=== PATIENT | female | born 1950 | race Caucasian/White ===

== ENCOUNTER 2019-05-11 08:31 | Day surgery (SDC) | payer MEDICARE, OTHER, SELFPAY ==
--- NOTE | 2019-05-11 | PATH_ITS ---
[facility] Accession Number: [id number] . 01 Material submitted: . PART A: colon - BIOPSY AT 15CM OF TATTOOED PRIOR POLYPECTOMY SITE PART B: colon - POLYP AT 10CM . 02 Diagnosis: A. Colon, at 15 cm of Tattooed Prior Polypectomy Site, Biopsy: Colonic mucosa with no significant diagnostic abnormality. Negative for active, chronic and microscopic colitis. Negative for dysplasia and malignancy. . B. Colon, Polyp at 10 cm, Biopsy: Tubular adenoma. MRV 05/14/2019 1436 Local . 02 Electronically signed: . Judi Zhu MD, Pathologist NPI- [id number] . 01 Gross description: . Part A: BIOPSY AT 15CM OF TATTOOED PRIOR POLYPECTOMY SITE: Received in formalin is 1 fragment(s) of pires, soft tissue measuring 0.1 x 0.1 x 0.1 cm submitted entirely in 1 cassette(s) Part B: POLYP AT 10CM: Received in formalin is 1 fragment(s) of pires, soft tissue measuring 0.3 x 0.3 x 0.2 cm submitted entirely in 1 cassette(s) /[facility] [place] 05/11/2019 2151 Local . 02 Pathologist provided ICD-10: D12.6 . 02 CPT . 676802, [id number] Performed at: 01 [facility] [address] [id number] MD Marc Robison MD Phone: [phone] Performed at: 02 [facility] [place] [address] [place], [place] [id number] MD Judi Zhu MD Phone: [phone]
[2019-05-11 08:48] VITALS: BP 154/83; PULSE 82; RESP 16; TEMP 36.9; O2SAT 96; BMI 31.4
[2019-05-11] MEDS: SODIUM CHLORIDE 0.9% 1,000 ML 200 ML IV (09:10)
--- NOTE | 2019-05-11 10:20 | PM.HP.1 ---
History of Present Illness History of Present Illness Date Patient Seen: 05/11/19 Time Patient Seen: 10:20 Chief complaint: [id number] Narrative: This is a 69-year-old woman with history of colon polyps, found on multiple prior colonoscopies. Per the patient she had 7 polyps on her initial colonoscopy, and was on a 1 year rotation for several years prior to the most recent colonoscopy. Her last colonoscopy was 3 years ago and no polyps were found. She denies any melena or hematochezia. No unexplained abdominal pain or weight loss. She has a medical history of hypertension, arthritis, hepatitis-C which was treated and cleared. The remainder of her history is documented below. Past medical history: Hypertension High cholesterol Arthritis Postmenopausal Type 2 diabetes Depression Psoriasis Hepatitis C--treated and cleared Past surgical history: Back surgery in 2014 Hip surgery 2016 Medications: Metformin 500 mg daily Hydrochlorothiazide 12.5 mg daily Losartan 100 mg daily Metoprolol 50 mg daily Celebrex 100 mg daily Lexapro 20 mg daily Allopurinol 100 mg daily Lipitor 20 mg daily Aspirin 81 mg daily Family medical history: Two brothers with colon polyps No colon cancer Social history: Never smoker, never alcohol, denies use of other drugs Allergies: Lisinopril-cough ROS: Psoriasis, depression, knee pain. Thirteen system review is otherwise negative other than as mentioned below and in HPI. PE: GENERAL: Well groomed and cooperative. Appears stated age. Answers questions promptly and appropriately. Vital signs noted. HENT: Normocephalic, atraumatic. Hearing intact. Oral mucosa is pink and moist. EYES: Conjunctiva pink, sclera white, no periorbital swelling. CARDIOVASCULAR: Regular rate. No pedal edema. RESPIRATORY: Non-tachypneic, breathing comfortably on room air. GASTROINTESTINAL: Abdomen soft and non-distended GENITALURINARY: No flank tenderness. MUSCULOSKELETAL: Equal tone and mass bilaterally. SKIN: Warm, dry, soft, appropriate color for ethnicity. No other lesions, rashes, or wounds. NEURO: Alert and Oriented X 3. No gross sensory deficits, or cognitive issues. PSYCH: Appropriate affect and mood. Patient History Family & Social History Social History: household members friend(s) Meds Home Medications and Allergies Allergies Allergy/AdvReac Type Severity Reaction Status Date / Time lisinopril AdvReac Mild Cough Verified 05/11/19 08:55 Exam Vital Signs (past 8 hours): - 05/11/19 08:48 Temperature 98.4 F Pulse Rate 82 Respiratory Rate 16 Blood Pressure 154/83 H Pulse Oximetry 96 Oxygen Delivery Method Room Air Assessment & Plan Assessment and plan (1) Personal history of colonic polyps: Current visit: Yes Status: Acute Assessment & Plan narrative: This is a 69-year-old woman with history of colon polyps. Risks and benefits of colonoscopy including polypectomy were discussed including risk of bleeding, perforation, need for additional procedures. The patient desires to proceed with her colonoscopy procedure. Time Spent With Patient Time with patient: 15-24 minutes Quality VTE Deep Vein Thrombosis/Pulmonary Embolism Present on Admission: No
[2019-05-11] MEDS: fentaNYL 250 MCG/5 ML INJ IV (10:28)
[2019-05-11] MEDS: MIDAZOLAM 5 MG/5 ML VIAL IV (10:29)
--- NOTE | 2019-05-11 10:40 | SUR.OPER ---
GLASSES IN LABELED BAG TO PACU WITH PATIENT.
--- NOTE | 2019-05-11 10:51 | PM.OP.ENDO ---
Operative Date/Time/Diagnoses Date of procedure: 05/11/19 Time of procedure: 10:51 Pre-op diagnosis: History of multiple polyps Post-op diagnosis: same Procedure & Clinicians Study performed: Colonoscopy, polypectomy with cold forceps, biopsy of prior polypectomy site with cold forceps Same procedure as scheduled: Yes Indications: Patient with history of multiple polyps Surgeon: Lexie Burgos Procedure Notes SCOAP/Timeout: Performed Procedure in detail: The patient was brought to the room and placed in left lateral decubitus position with all bony prominences padded. A time-out was performed and then the patient was given procedural sedation starting with 4 mg of Versed and 100 mcg of fentanyl. A total of 5 mg of Versed and 150 micro g of fentanyl were given for the case. Vitals were monitored throughout the procedure and remained stable. Once adequately sedated the procedure was begun. A rectal exam was performed revealing no abnormalities. The colonoscope was then introduced to the rectum and advanced to the cecum in the usual fashion. The cecum was identified by the appendiceal orifice, the mucosal tri-fold, and the ileocecal valve. The scope was then retracted while rotating side to side and examining each mucosal fold. Several tattooed sites were seen throughout the colon, which are expected to be prior polypectomy sites. At 15 cm in the rectum 1 of the tattoo sites had a hypercellular area at the center of it, suspicious for adenomatous growth. This was biopsied. Another polyp was seen at 10 cm in the rectum. It was about 3 mm in size, and was removed with cold forceps. She had moderate diverticulosis in the descending and sigmoid colon with some thickening consistent with prior episodes of diverticulitis. At the conclusion of the procedure retroflexion was performed and small grade 1-2 internal hemorrhoids without stigmata of bleeding were seen. The scope was then withdrawn from the rectum the procedure was concluded. The patient tolerated the procedure well and was transferred to the PACU in stable condition. Scope withdrawal time: 14 Sedation minutes: 21 Findings: diverticulosis Specimen(s): other (Biopsy of tattooed prior polypectomy site at 15 cm from the anal verge, 3 mm polyp removed from rectum at 10 cm) Complications: none Impression: One polyp, 1 area of prior polypectomy site which was concerning for adenomatous growth Post-procedure Recommendations: Colonscopy in 3 years (Depending on pathology results) Follow up: as needed Disposition: PACU
[2019-05-11 10:56] VITALS: BP 117/58; PULSE 72; RESP 15; TEMP 37.3; O2SAT 94
[2019-05-11 11:02] VITALS: BP 120/60; PULSE 78; RESP 13; O2SAT 96
[2019-05-11 11:06] VITALS: BP 108/75; PULSE 80; RESP 12; TEMP 36.7; O2SAT 95
[2019-05-11 11:14] VITALS: BP 126/73; PULSE 79; RESP 15; TEMP 37.1; O2SAT 93
--- NOTE | 2019-05-11 11:47 | SUR.PHASEII ---
Pt not wanting friend to come in, d/c instructions discussed, pt with soft belly and denied nausea. Pt dressed when ready and left when ready and in stable condition.
== END 2019-05-11 11:40 | disposition home or self-care (01) ==
PROVIDERS: Visit Provider Surgery
PROC: 0DJD8ZZ Inspection of Lower Intestinal Tract, Via Natural or Artificial Opening Endoscopic (ICD-10-PCS; CPT 45378; principal; 2019-05-11 10:00)
DX: Z12.11 Encounter for screening for malignant neoplasm of colon (principal); Z86.010 Personal history of colon polyps; I10 Essential (primary) hypertension; E78.00 Pure hypercholesterolemia, unspecified; E11.9 Type 2 diabetes mellitus without complications; F32.9 Major depressive disorder, single episode, unspecified; Z79.84 Long term (current) use of oral hypoglycemic drugs; D12.6 Benign neoplasm of colon, unspecified
CPT/HCPCS: 45380; 99152; J2250; J3010

== ENCOUNTER → 2020-03-18 09:37 | Outpatient (CLI) | payer MEDICARE, OTHER, SELFPAY ==
--- NOTE | 2020-03-18 | DI.MRI.S_ITS ---
PROCEDURE: MR LUMBAR SPINE WO CON INDICATIONS: Low back pain TECHNIQUE: Noncontrast sagittal T1 spin echo and T2 fast echo, sagittal STIR, axial T1 and T2 fast spin echo through the lumbar spine. In cases with scoliosis, additional coronal T2 fast spin echo may be performed. COMPARISON: [facility], MR, L-SPINE WITHOUT CONTRAST, 08/01/2013, 9:42. [facility], MR, LUMBAR SPINE W&W/O CONTRAST, 03/16/2012, 10:09. [facility], MR, L-SPINE WITHOUT CONTRAST, 01/08/2010, 16:41. [facility], MR, L-SPINE WITHOUT CONTRAST, 06/05/2008, 14:42. [facility], MR, L-SPINE WITHOUT CONTRAST, 04/22/2014, 14:38. [facility], CR, XR LUMBAR SPINE 2 OR 3 VIEWS, 03/12/2020, 8:44. FINDINGS: Image quality: There is artifact associated with the metallic hardware. Alignment and Curvature: Mild dextroconvex scoliotic curvature is seen. No focal AP alignment abnormality is seen. Bone Marrow: Marrow is of normal overall signal. No acute vertebral body compression fractures. Spinal Cord: Conus medullaris terminates at the L1 level. Visualized cord demonstrates normal signal and size. Paraspinous Soft Tissues: No paravertebral masses. Incidental note is made of a retroaortic left renal vein. Postoperative changes are seen, with bilateral pedicle screws at L2, L4, and L5, with a right-sided screw at L3. Vertical fixation rods are seen. Disc spacers are seen at L2-3, L3-4, and L4-5. There is associated susceptibility artifact. There has been removal of portions of the posterior elements. T12-L1: Mnno-rb-[id number] loss of disc height and disc signal can be seen. Mild generalized disc bulge is seen. No significant neural foraminal or central canal narrowing can be seen. L1-L2: Zzhq-gm-taxqhsbq loss of disc height and disc signal can be seen. Mild generalized disc bulge is seen. There is mild left-sided and no significant right-sided neural foraminal narrowing seen. Mild central canal narrowing is seen. These imaging findings have progressed compared to the prior study. L2-L3: Postoperative changes are seen at this level. No significant neural foraminal or central canal narrowing can be seen. This level is improved compared to the preoperative MRI. L3-L4: There are postoperative changes seen at this level. At least moderate disc bulge is seen. Moderate facet joint hypertrophy is seen. No significant neural foraminal narrowing can be seen. Moderate central canal narrowing is seen. This level is improved compared to the preoperative MRI study. L4-L5: There are postoperative changes seen at this level. Moderate generalized disc bulge is seen. Moderate bilateral neural foraminal narrowing can be seen, left worse than right. Moderate central canal narrowing is seen. This level is overall improved compared to the 2014 MRI examination. L5-S1: Moderate loss of disc height is seen. Loss of disc signal is seen. Moderate prominent disc bulge is seen, which is eccentric to the right. Moderate prominent facet hypertrophy can be seen at this level. Moderate to severe bilateral neural foraminal narrowing is seen, right worse than left. Moderate to severe central canal narrowing is seen. The degenerative changes at this level have progressed compared to 2014. IMPRESSION: L2 through L5 postoperative changes, with improvement in the degrees of narrowing compared to the 2014 preoperative MRI examination. Progression of degenerative change at L1-L2 and L5-S1 compared to 2014. Dictated by: Jd Acosta M.D. on 03/18/2020 at 12:26 Approved by: Jd Acosta M.D. on 03/18/2020 at 12:32
== END ==
PROVIDERS: PCP Internal Medicine; Referring Provider Internal Medicine; Visit Provider Orthopaedic Surgery
DX: M54.5 Low back pain (principal); M47.816 Spondylosis without myelopathy or radiculopathy, lumbar region; M47.817 Spondylosis without myelopathy or radiculopathy, lumbosacral region
CPT/HCPCS: 72148

== ENCOUNTER → 2020-06-02 13:50 | Outpatient (CLI) | payer MEDICARE, OTHER, SELFPAY ==
[2020-06-02 15:13] LABS: COVID19 -Nasal RAPID Negative (Negative)
== END ==
PROVIDERS: PCP Internal Medicine; Visit Provider Physical Medicine & Rehabilitation
DX: Z20.822 Contact with and (suspected) exposure to COVID-19 (principal)
CPT/HCPCS: 87635; C9803

== ENCOUNTER 2020-06-03 07:59 | Outpatient (CLI) | payer MEDICARE, OTHER, SELFPAY ==
--- NOTE | 2020-06-03 08:05 | DI.RAD.S_ITS ---
PROCEDURE: PAIN L INTERLAMINAR/CAUDAL INJ INDICATIONS: SPONDYLOSIS COMPARISON: [facility], RF, LUMBAR TRANSFORAMINAL SARA, 05/07/2020, 11:11. [facility], RF, LUMBAR TRANSFORAMINAL SARA, 04/01/2020, 14:22. [facility], MR, MR LUMBAR SPINE WO CON, 03/18/2020, 10:04. [facility], CR, XR LUMBAR SPINE 2 OR 3 VIEWS, 03/12/2020, 8:44. FINDINGS: Fluoroscopic spot filming was performed to verify placement of spinal needles at the L5-S1 level(s), as labeled on the films. Appropriate location(s) of the needle tip(s) was confirmed by injection of iodinated contrast. IMPRESSION: Fluoroscopy for pain management. Dictated by: Tevin Altman M.D. on 06/03/2020 at 9:46 Approved by: Tevin Altman M.D. on 06/03/2020 at 9:47
[2020-06-03 08:32] VITALS: BP 121/70; PULSE 68; RESP 16; TEMP 37.1; O2SAT 95
[2020-06-03 09:01] VITALS: BP 189/81; PULSE 70; RESP 10; O2SAT 98
[2020-06-03 09:05] VITALS: BP 180/70; PULSE 66; RESP 17; O2SAT 92
[2020-06-03] MEDS: BETAMETHASONE 30 MG/5 ML MDV 6 MG INJ (09:06)
[2020-06-03] MEDS: BUPIVACAINE 0.25% (PF) VIAL 2 ML INJ (09:06)
[2020-06-03] MEDS: IOPAMIDOL 15 ML VIAL 3 ML INJ (09:06)
[2020-06-03] MEDS: fentaNYL 100 MCG/2 ML INJ 50 MCG IV (09:07)
[2020-06-03] MEDS: DEXAMETHASONE 10 MG/ML VIAL 20 MG INJ (09:07)
[2020-06-03] MEDS: MIDAZOLAM 5 MG/5 ML VIAL IV (09:08)
--- NOTE | 2020-06-03 09:12 | P.PCN_ITS ---
Date/Time/Diagnoses Date of procedure: 06/03/20 Time of procedure: 09:12 Pre-procedure diagnosis: 1. HNP WITH RADICULAR FEATURES, 2. MULTILEVEL CENTRAL STENOSIS, Post-procedure diagnosis: same Procedure Notes Procedure: 1. FLUOROSCOPICALLY GUIDED CONTRAST CONTROLLED INTERLAMINAR EPIDURAL STEROID INJECTION - Para left L5/S1 Indications: Radha is referred by Dr. Lewis for treatment of Bilateral Foraminal Stenosis L>R LE symptoms. Physician: Hai Cordero Total Fluoroscopy time (seconds): 4 Total sedation minutes: 7 Complications: none Procedure in detail & Post-procedure care: FINDINGS Multilevel Central Spinal Stenosis with Nerve Root Compression DESCRIPTION OF PROCEDURE Fluoroscopically guided, contrast-controlled L5/S1 translaminar epidural steroid injection. Following review of allergy and review of potential side effects and complications, including, but not necessarily limited to, infection, allergic reaction, local tissue breakdown, temporary as well as permanent nerve injury, paralysis, stroke and possible , the patient indicated that the patient understood and agreed to proceed. An informed consent document was signed by the patient, witnessed by a nurse, and placed in the patient's chart. Additionally, other treatment options including modalities, medications, and physical therapy were reviewed with the patient. After review of previous anaesthesic history and IV conscious sedation the patient was deemed safe to proceed with today?s procedure with IV conscious sedation as ASA class II designation. Safety time-out was performed to confirm patient ID, procedure to be performed and site of procedure. IV sedation was accomplished with a combination of 2mg of Versed and 50mcg of Fentanyl administered by the RN after DO order, titrated to patient comfort during the course of the procedure while the patient remained responsive to all verbal commands. In the prone position, following sterile prep and drape of the lumbar region, t he L5/S1 translaminar space was identified fluoroscopically. The skin was anesthetized via a 25-gauge, 1.5-inch needle with 1% lidocaine solution. At this point, a 22-gauge short bevel spinal needle was atraumatically introduced and advanced under fluoroscopic guidance into the region of the L5/S1 translaminar space. Depth was confirmed on lateral view. Radiological data, including multiple fluoroscopic views of the lumbar spine, reveal a spinal needle at the L5/S1 translaminar space. Lateral views then show placement of the needle in the epidural space. Subsequent views show contrast material flowing superiorly and inferiorly in the epidural space. No vascular or intrathecal uptake is observed. At this point, using loss of resistance technique with saline and air, the epidural space was entered. This was confirmed following negative aspiration with injection of approximately 1.5cc of Isovue 200, showing excellent epidural flow without vascular or intrathecal uptake. At this point, 1 cc of 1% lidocaine solution combined with 3cc or 20mg of dexamethasone and 6mg of betamethasone was injected without incident. The patent tolerated the procedure without signs of symptoms of complications prior to transfer to the recovery area for further monitoring. The patient was then transferred to the recovery area where they were observed for an appropriate period of time after the injection. The patient reported a VAS score of 6 prior to the procedure and a post-procedure VAS of 0. POST OP INSTRUCTIONS The patient was provided a Pain Log to continue to record their response to the target-specific procedure prior to follow-up visit with their referring physician. Additionally, specific post-injection care instructions and a contact number to our office were provided if concerns arise regarding possible complications associated with the procedure are suspected.
[2020-06-03 09:22] VITALS: BP 126/73; PULSE 67; RESP 17; O2SAT 95
[2020-06-03 09:27] VITALS: BP 119/60; PULSE 64; RESP 15; O2SAT 96
[2020-06-03 09:32] VITALS: BP 120/60; PULSE 65; RESP 16; O2SAT 95
== END 2020-06-03 09:45 | disposition home or self-care (01) ==
LOC: RAD 08:04
PROVIDERS: PCP Internal Medicine; Referring Provider Physical Medicine & Rehabilitation; Visit Provider Physical Medicine & Rehabilitation
DX: M51.17 Intervertebral disc disorders with radiculopathy, lumbosacral region (principal); M48.07 Spinal stenosis, lumbosacral region
CPT/HCPCS: 62323; J0702; J1100; J2250; J3010

== ENCOUNTER → 2020-07-29 12:56 | Outpatient (CLI) | payer MEDICARE, OTHER, SELFPAY ==
[2020-07-29 14:14] LABS: COVID19 -Nasal RAPID Negative (Negative)
== END ==
PROVIDERS: PCP Internal Medicine; Visit Provider Physical Medicine & Rehabilitation
DX: Z20.822 Contact with and (suspected) exposure to COVID-19 (principal)
CPT/HCPCS: 87635; C9803

== ENCOUNTER 2020-07-31 13:39 | Outpatient (CLI) | payer MEDICARE, OTHER, SELFPAY ==
[2020-07-31] VITALS (9 sets, daily range): BP systolic 122–256; BP diastolic 58–72; PULSE 63–70; RESP 11–18; TEMP 37.1; O2SAT 92–97
--- NOTE | 2020-07-31 13:41 | DI.RAD.S_ITS ---
PROCEDURE: PAIN L/S FACET INJ/BLK 1ST [facility] COMPARISON: None. INDICATIONS: SPONDYLOSIS FINDINGS: Fluoroscopic spot filming was performed to verify placement of spinal needles at the L5-S1 level(s), as labeled on the films. Appropriate location(s) of the needle tip(s) was confirmed by injection of iodinated contrast. Dictated by: Gabriel Kumar M.D. on 07/31/2020 at 15:39 Approved by: Gabriel Kumar M.D. on 07/31/2020 at 15:39
[2020-07-31] MEDS: fentaNYL 100 MCG/2 ML INJ 50 MCG IV (14:19)
[2020-07-31] MEDS: MIDAZOLAM 5 MG/5 ML VIAL IV (14:19)
[2020-07-31] MEDS: IOPAMIDOL 15 ML VIAL 3 ML INJ (14:24)
[2020-07-31] MEDS: BUPIVACAINE 0.5% (PF) VIAL 2 ML INJ (14:24)
[2020-07-31] MEDS: BETAMETHASONE 30 MG/5 ML MDV 12 MG INJ (14:24)
--- NOTE | 2020-07-31 14:32 | PM.PROC.IR.1 ---
Date/Time/Diagnoses Date of procedure: 07/31/20 Time of procedure: 14:32 Pre-procedure diagnosis: 1. FACET ARTHROPATHY, 2. AXIAL LBP, 3. MULTILEVEL DDD, Post-procedure diagnosis: same Procedure Notes Procedure: 1. FLUORSCOPICALLY GUIDED CONTRAST CONTROLLED FACET JOINT INJECTIONS BILATERAL L5/S1 Indications: Radha is referred by Dr. Lewis for treatment of Axial LBP Physician: Hai Cordero Total Fluoroscopy time (seconds): 8 Total sedation minutes: 11 Complications: none Procedure in detail & Post-procedure care: DESCRIPTION OF PROCEDURE Fluoroscopically guided, contrast-controlled bilateral L5/S1 facet joint injections. Following review of allergy and review of potential side effects and complications, including, but not necessarily limited to, infection, allergic reaction, local tissue breakdown, stroke, temporary or permanent nerve injury, paralysis, and possible , the patient indicated that the patient understood and agreed to proceed. An informed consent document was signed by the patient, witnessed by a nurse, and placed in the patient's chart. Additionally, other treatment options including medications, modalities, and physical therapy were reviewed with the patient. After review of previous anaesthesic history and IV conscious sedation the patient was deemed safe to proceed with today?s procedure with IV conscious sedation as ASA class II designation. Safety time-out was performed to confirm patient ID, procedure to be performed and site of procedure. IV sedation was accomplished with a combination of 2mg of Versed and 50mcg of Fentanyl administered by the RN after DO order, titrated to patient comfort during the course of the procedure while the patient remained responsive to all verbal commands In the prone position, following sterile prep and drape of the lumbar region, the posterior aspect of the L5/S1 facet joints were identified fluoroscopically. The skin was anesthetized via a 25-gauge 1.5-inch needle with 1% lidocaine solution into the corresponding facet joints. At this point, a 22-gauge 3inch spinal needle was atraumatically introduced and advanced under fluoroscopic guidance into the corresponding facet joints. Following negative aspiration, injections of approximately 0.2cc of Isovue 200 confirmed interarticular placement without vascular uptake. The identical procedure was then performed at the L5/S1 facet joints on the left. Radiological data, including multiple fluoroscopic views of the lumbosacral spine, reveal a spinal needle at the L5/S1 facet joints bilaterally. Subsequent views show flow of contrast material both superiorly and inferiorly within the joint space without vascular or intrathecal uptake. At this point, a total of 0.5cc including a mixture of 0.25cc Marcaine and 0.25cc betamethasone was injected without complication into each of the corresponding facet joints. The patient tolerated the procedure well without signs or symptoms of complications prior to transfer to the recovery area continued monitoring without incident. The patient was then transferred to the recovery area where they were observed for an appropriate period of time after the injection. The patient reported a VAS score of 7 prior to the procedure and a post-procedure VAS of 0. POST OP INSTRUCTIONS The patient was provided a Pain Log to continue to record their response to the target-specific procedure prior to follow-up visit with their referring physician. Additionally, specific post-injection care instructions and a contact number to our office were provided if concerns arise regarding possible complications associated with the procedure are suspected.
== END 2020-07-31 14:55 | disposition home or self-care (01) ==
LOC: RAD 13:40
PROVIDERS: PCP Internal Medicine; Referring Provider Internal Medicine; Visit Provider Physical Medicine & Rehabilitation
DX: M47.817 Spondylosis without myelopathy or radiculopathy, lumbosacral region (principal); M51.37 Other intervertebral disc degeneration, lumbosacral region; M54.5 Low back pain
CPT/HCPCS: 64493; 99152; J0702; J2250; J3010

== ENCOUNTER → 2020-10-14 07:34 | Outpatient (CLI) | payer MEDICARE, OTHER, SELFPAY ==
[2020-10-14 12:55] LABS: COVID19 -Nasal RAPID Negative (Negative)
== END ==
PROVIDERS: PCP Internal Medicine; Visit Provider Physical Medicine & Rehabilitation
DX: Z20.822 Contact with and (suspected) exposure to COVID-19 (principal)
CPT/HCPCS: 87635; C9803

== ENCOUNTER 2020-10-16 09:56 | Outpatient (CLI) | payer MEDICARE, OTHER, SELFPAY ==
[2020-10-16] VITALS (10 sets, daily range): BP systolic 131–168; BP diastolic 57–76; PULSE 55–65; RESP 10–20; TEMP 36.1; O2SAT 95–99
--- NOTE | 2020-10-16 09:57 | DI.RAD.S_ITS ---
PROCEDURE: PAIN L/S FACET INJ/BLK 1ST [facility] COMPARISON: [facility], XA, PAIN L/S FACET INJ/BLK 1ST [facility], 07/31/2020, 14:25. [facility], XA, PAIN L INTERLAMINAR/CAUDAL INJ, 06/03/2020, 9:02. [facility], , LUMBAR TRANSFORAMINAL SARA, 05/07/2020, 11:11. [facility], , LUMBAR TRANSFORAMINAL SARA, 04/01/2020, 14:22. INDICATIONS: SPONDYLOSIS FINDINGS: 6 intraoperative fluoroscopy images demonstrate needle placement at L5 and S1 bilaterally. Note is made of postsurgical changes related to discectomy and spinal fusion. IMPRESSION: Fluoroscopy guidance for pain management. Dictated by: Tevin Altman M.D. on 10/16/2020 at 11:30 Approved by: Tevin Altman M.D. on 10/16/2020 at 11:32
[2020-10-16] MEDS: fentaNYL 100 MCG/2 ML INJ 50 MCG IV (10:53)
[2020-10-16] MEDS: MIDAZOLAM 5 MG/5 ML VIAL IV (10:57)
[2020-10-16] MEDS: BUPIVACAINE 0.5% (PF) VIAL 5 ML INJ (11:02)
[2020-10-16] MEDS: IOPAMIDOL 15 ML VIAL 3 ML INJ (11:02)
[2020-10-16] MEDS: LIDOCAINE 1% 20 ML 10 ML INJ (11:02)
--- NOTE | 2020-10-16 11:14 | P.PCN_ITS ---
Date/Time/Diagnoses Date of procedure: 10/16/20 Time of procedure: 11:15 Pre-procedure diagnosis: 1. FACET ARTHROPATHY Post-procedure diagnosis: same Procedure Notes Procedure: 1. BILATERAL- L5 and S1 MB BLOCKS Indications: Radha is referred by Dr. Lewis for treatment of Bilateral Axial LBP. Physician: Hai Cordero Total Fluoroscopy time (seconds): 10 Total sedation minutes: 16 Complications: none Procedure in detail & Post-procedure care: DESCRIPTION OF PROCEDURE Fluoroscopically guided, contrast-controlled bilateral L5 and S1 medial branch blocks with 0.5cc of 0.5% Marcaine. Following review of allergy and review of potential side effects and complications, including, but not necessarily limited to, infection, allergic reaction, local tissue breakdown, nerve injury, paralysis, stroke and possible , the patient indicated that the patient understood and agreed to proceed. An informed consent document was signed by the patient, witnessed by a nurse, and placed in the patient's chart. After review of previous anaesthesic history and IV conscious sedation the patient was deemed safe to proceed with today?s procedure with IV conscious sedation as ASA class II designation. Safety time-out was performed to confirm patient ID, procedure to be performed and site of procedure. IV sedation was accomplished with a combination of 3mg of Versed and 50mcg of Fentanyl was administered by the RN after DO order, titrated to patient comfort during the course of the procedure while the patient remained responsive to all verbal commands In the prone position, following sterile prep and drape of the lumbar region, the right L5 and S1 anatomical location of the medial branch of the dorsal ramus was identified fluoroscopically. Subsequently an anesthetic skin wheal using 1% lidocaine solution was initiated at each of the anatomical spots. Subsequently then a 22-gauge 3.5-inch spinal needle was atraumatically introduced and advanced under fluoroscopic guidance at each of the corresponding sites at the right L5 and S1 MB. After negative aspiration, 0.2 cc of Isovue 200 was injected, confirming placement without vascular or intrathecal uptake. Subsequently then 0.5 cc of 0.5% Marcaine solution was injected at each of the corresponding sites at the right L5 and S1 medial branch locations. The identical procedure was replicated on the left. The patient tolerated the procedure well without signs or symptoms of complications. The patient tolerated the procedure well without signs or symptoms of complications prior to transfer to the recovery area continued monitoring wit hout incident. Post-procedure, the patient was monitored initiating provocative activities to measure the amount of relief from block of the facetogenic pain. The patient reported a VAS of 7 prior to the procedure and a post-procedure VAS of 1. It has been a pleasure to assist in the diagnostic and therapeutic care of your patient. POST OP INSTRUCTIONS The patient was provided with a Pain Log to complete over the next several hours and subsequent days prior to the patient's follow up with the ordering physician. If the patient has websphere commerce consultant relief to the solution applied, then they may be a candidate for medial branch rhizotomy. The patient is aware, was provided, once again, with a Pain Log and will follow up with the referring physician for review and clinical correlation.
== END 2020-10-16 11:36 | disposition home or self-care (01) ==
LOC: RAD 09:57
PROVIDERS: PCP Internal Medicine; Referring Provider Physical Medicine & Rehabilitation; Visit Provider Physical Medicine & Rehabilitation
DX: M47.816 Spondylosis without myelopathy or radiculopathy, lumbar region (principal); M54.5 Low back pain
CPT/HCPCS: 64493; 99152; J2250; J3010

== ENCOUNTER → 2020-12-15 08:08 | Outpatient (CLI) | payer MEDICARE, OTHER, SELFPAY ==
[2020-12-15 12:13] LABS: COVID19 -Nasal RAPID Negative (Negative)
== END ==
PROVIDERS: PCP Internal Medicine; Visit Provider Physical Medicine & Rehabilitation
DX: Z20.822 Contact with and (suspected) exposure to COVID-19 (principal)
CPT/HCPCS: 87635; C9803

== ENCOUNTER 2020-12-16 10:31 | Outpatient (CLI) | payer MEDICARE, OTHER, SELFPAY ==
[2020-12-16] VITALS (12 sets, daily range): BP systolic 131–167; BP diastolic 55–73; PULSE 59–70; RESP 12–19; TEMP 37.1; O2SAT 94–98
--- NOTE | 2020-12-16 10:32 | DI.RAD.S_ITS ---
PROCEDURE: PAIN L/S MED/LAT N RFA BILAT INDICATIONS: SPONDYLOSIS COMPARISON: [facility], XA, PAIN L/S FACET INJ/BLK 1ST CHRISTI, 10/16/2020, 11:02. [facility], XA, PAIN L/S FACET INJ/BLK 1ST [facility]STI, 07/31/2020, 14:25. FINDINGS: Fluoroscopic spot filming was performed to verify placement of spinal needles at the on both sides at the L5 and S1 level(s), as labeled on the films. IMPRESSION: Intraprocedural examination within normal limits. Dictated by: Jd Acosta M.D. on 12/16/2020 at 11:50 Approved by: Jd Acosta M.D. on 12/16/2020 at 11:51
[2020-12-16] MEDS: fentaNYL 100 MCG/2 ML INJ 50 MCG IV (12:00)
[2020-12-16] MEDS: LIDOCAINE 1% 20 ML INJ (12:06)
[2020-12-16] MEDS: BUPIVACAINE 0.5% (PF) VIAL 5 ML INJ (12:07)
[2020-12-16] MEDS: MIDAZOLAM 5 MG/5 ML VIAL IV (12:19)
--- NOTE | 2020-12-16 12:34 | P.PCN_ITS ---
Date/Time/Diagnoses Date of procedure: 12/16/20 Time of procedure: 12:35 Pre-procedure diagnosis: 1. RECALCITRANT FACET ARTHROPATHY Post-procedure diagnosis: same Procedure Notes Procedure: 1. BILATERAL L5 MEDIAL BRANCH RADIOFREQUENCY NEUROTOMY AND BILATERAL S1 DORSAL RAMUS BRANCH RADIOFREQUENCY NEUROTOMY. Indications: Radha is referred by Dr. Lewis for treatment of facet arthropathy. Physician: Hai Cordero Total Fluoroscopy time (seconds): 15 Total sedation minutes: 28 Complications: none Procedure in detail & Post-procedure care: DESCRIPTION OF PROCEDURE Bilateral L5 medial branch radiofrequency neurotomy and bilateral S1 dorsal ramus branch radiofrequency neurotomy under fluoroscopy with conscious sedation. The patient is well known to this clinic having undergone previous facet injections with good but temporary relief. The patient has experienced appropriate, concordant relief with previous facet and median branch blocks but the patient's pain has been recalcitrant to further conservative measures. Therefore, based upon the patient's relief and persistent symptoms, the patient is considered an appropriate candidate for facet rhizotomy. All of the patient's questions regarding the risks versus benefits of the procedure, including, but not limited to, bleeding, infection, temporary as well as lasting nerve injury, paralysis, stroke, and , as well treatment alternatives were answered to satisfaction. After obtaining informed consent, denial of pertinent drug allergies, as well as being made aware of the potential risks of bleeding, infection, spinal cord trauma, paralysis, temporary and permanent nerve damage, seizure, stroke, and possible , the patient was brought to the fluoroscopy suite and positioned prone on the fluoroscopy table. The lumbar region was prepped with Betadine and covered with a fenestrated drape in the usual sterile fashion. Appropriate monitors applied including pulse oximeter, pulse, and blood pressure for regular monitoring throughout the procedure. After review of previous anaesthesic history and IV conscious sedation the patient was deemed safe to proceed with today?s procedure with IV conscious sedation as ASA class II designation. Safety time-out was performed to confirm patient ID, procedure to be performed and site of procedure. IV sedation was accomplished with a combination of 5mg of Versed and 50mcg of Fentanyl was administered by the RN after DO order, titrated to patient comfort during the course of the procedure while the patient remained responsive to all verbal commands. After local infiltration using 1% lidocaine, under fluoroscopic guidance, a 10- cm RF insulated needle with a 10-mm active tip was positioned parallel to the junction of the bilateral sacral ala and the superior articulating process where the S1 dorsal ramus resides. Needle placement was confirmed with motor stimulation of .5v on the right; motor stimulation of .6v on the left, which produced local stimulation without radicular component. The stimulation was then increased to 2v with, once again, only local multifidus stimulation without radicular component. This was then followed by two discreet lesions performed at 80 degrees Celsius for 90 seconds each. The needle was then removed and the identical procedure was performed along the length of the bilateral L5 medial branch with motor stimulation at .7v on the right; motor stimulation at .6v on the left. The patient tolerated the procedure well without signs or symptoms of complications prior to transfer to the recovery area continued monitoring without incident. The patient was then transferred to the recovery area where they were observed for an appropriate period of time after the injection. The patient reported a VAS score of 9 prior to the procedure and a post- procedure VAS of 0. POST OP INSTRUCTIONS The patient was provided a Pain Log to continue to record the patient's response to the target-specific procedure prior to the patient's follow-up visit with the referring physician. Additionally, specific post-injection care instructions and a contact number to our office were provided if concerns arise regarding possible complications associated with the procedure are suspected.
== END 2020-12-16 12:50 | disposition home or self-care (01) ==
LOC: RAD 10:31
PROVIDERS: PCP Internal Medicine; Referring Provider Physical Medicine & Rehabilitation; Visit Provider Physical Medicine & Rehabilitation
DX: M47.817 Spondylosis without myelopathy or radiculopathy, lumbosacral region (principal)
CPT/HCPCS: 64635; 99152; 99153; J2250; J3010

== ENCOUNTER → 2021-05-12 11:13 | Outpatient (CLI) | payer MEDICARE, OTHER, SELFPAY ==
[2021-05-12 12:37] LABS: COVID19 -Nasal RAPID Negative (Negative)
== END ==
PROVIDERS: PCP Internal Medicine; Visit Provider Physical Medicine & Rehabilitation
DX: Z20.822 Contact with and (suspected) exposure to COVID-19 (principal)
CPT/HCPCS: 87635; C9803

== ENCOUNTER 2021-05-14 13:52 | Outpatient (CLI) | payer MEDICARE, OTHER, SELFPAY ==
[2021-05-14] VITALS (8 sets, daily range): BP systolic 125–190; BP diastolic 68–88; PULSE 63–72; RESP 12–18; O2SAT 95–99
--- NOTE | 2021-05-14 13:53 | DI.RAD.S_ITS ---
PROCEDURE: PAIN SI JOINT INJECTION INDICATIONS: SACROILIAC DISORDER COMPARISON: [facility], XA, PAIN L/S MED/LAT N RFA BILAT, 12/16/2020, 12:06. FINDINGS: Fluoroscopic spot filming was performed to verify placement of spinal involving the right sacroiliac joint, as labeled on the films. Appropriate location(s) of the needle tip(s) was confirmed by injection of iodinated contrast. IMPRESSION: Intraprocedural examination within normal limits. Dictated by: Jd Acosta M.D. on 05/14/2021 at 14:49 Approved by: Jd Acosta M.D. on 05/14/2021 at 14:49
[2021-05-14] MEDS: MIDAZOLAM 5 MG/5 ML VIAL IV (14:30)
[2021-05-14] MEDS: fentaNYL 100 MCG/2 ML INJ 50 MCG IV (14:30)
[2021-05-14] MEDS: BUPIVACAINE 0.5% (PF) VIAL 2 ML INJ (14:33)
[2021-05-14] MEDS: BETAMETHASONE 30 MG/5 ML MDV 12 MG INJ (14:33)
[2021-05-14] MEDS: IOPAMIDOL 15 ML VIAL 3 ML INJ (14:33)
--- NOTE | 2021-05-14 14:43 | PM.PROC.IR.1 ---
Date/Time/Diagnoses Date of procedure: 05/14/21 Time of procedure: 14:43 Pre-procedure diagnosis: Sacroiliac joint pain/DJD Post-procedure diagnosis: same Procedure Notes Procedure: Fluoroscopically guided contrast controlled right sacroiliac joint injection Indications: Joanne is referred by Dr. Lewis for treatment of right sacroiliac joint DJD Physician: Hai Cordero Total Fluoroscopy time (seconds): 11 Total sedation minutes: 9 Complications: none Procedure in detail & Post-procedure care: DESCRIPTION OF PROCEDURE Fluoroscopically guided, contrast controlled right sacroiliac joint injection Following review of allergies and review of potential side effects and complications, including, but not necessarily limited to, infection, allergic reaction, local tissue breakdown, temporary as well as permanent nerve injury, paralysis, stroke and possible , the patient indicated that they understood and agreed to proceed. An informed consent was signed by the patient, witnessed by a nurse, and placed in the patient's chart. Additionally, other treatment options including modalities, medications, and physical therapy were reviewed with the patient. After review of previous anaesthesic history and IV conscious sedation the patient was deemed safe to proceed with today?s procedure with IV conscious sedation as ASA class II designation. Safety time-out was performed to confirm patient ID, procedure to be performed and site of procedure. IV sedation was accomplished with a combination of 2mg of Versed and 50mcg of Fentanyl was administered by the RN after DO order, titrated to patient comfort during the course of the procedure while the patient remained responsive to all verbal commands In the prone position following sterile prep and drape of the pelvic region, the hyper lucency on in the inferior aspect of the sacroiliac joint was identified fluoroscopically the skin was anesthetized be a 25 gauge 1 eventual with approximately 2 cc of 1% lidocaine solution. At this point, a 22 gauge 3 in spinal needle was atraumatically introduced and advanced under fluoroscopic guidance into the inferior aspect of the right sacroiliac joint. Following negative aspiration, approximately 0.3cc of Isovue-300 was injected confirming intra-articular placement without vascular uptake. Radiographic data, including multiple fluoroscopic views of the pelvis, reveals a spinal needle in the sacroiliac joint hyper lucent zone. Subsequent view show flow contrast tear superiorly and inferiorly within the joint capsule without vascular intrathecal uptake. At this point a total of 1 of 0.5% Marcaine was combined with 1cc of 6 mg of betamethasone was injected without incident. The procedure tolerated the procedure well without signs or symptoms of complications prior to transfer to the recovery area continued monitoring without incident. The patient was then transferred to the recovery area with a bur observed for an appropriate time after the injection. The patient reverted a vas score of 7 prior to the procedure and post-procedure vas of 1. POSTOP INSTRUCTIONS The patient was provided with a pain like to continue to record the patient's response to the target specific procedure prior to the patient's follow-up visit with the referring physician. Additionally, specific post injection care instructions and a contact number to our office were provided if concerns arise regarding the possible complications associated with procedure are suspected.
== END 2021-05-14 15:05 | disposition home or self-care (01) ==
PROVIDERS: PCP Internal Medicine; Referring Provider Physical Medicine & Rehabilitation; Visit Provider Physical Medicine & Rehabilitation
DX: M53.3 Sacrococcygeal disorders, not elsewhere classified (principal); M46.1 Sacroiliitis, not elsewhere classified
CPT/HCPCS: 27096; J0702; J2250; J3010

== ENCOUNTER → 2021-07-14 12:37 | Outpatient (CLI) | payer MEDICARE, OTHER, SELFPAY ==
--- NOTE | 2021-07-14 | DI.MG.S_ITS ---
UNILATERAL LEFT DIGITAL DIAGNOSTIC MAMMOGRAM 3D/2D WITH ADDITIONAL VIEWS: 07/14/2021 CLINICAL: Additional evaluation requested from prior study. Comparison is made to exams dated: 05/26/2021 mammogram, 02/29/2020 mammogram - [facility], 09/20/2018 mammogram, and 08/12/2016 mammogram - [facility]. There are scattered fibroglandular elements in left breast. There is a possible focal asymmetry in the left breast at 1 o'clock posterior depth. This is not seen in additional views. No other significant masses or calcifications are seen in the breast. IMPRESSION: INCOMPLETE: NEEDS ADDITIONAL IMAGING EVALUATION The possible focal asymmetry in the left breast is indeterminate. A second look with targeted ultrasound is recommended and will immediately follow. This exam was interpreted at Station ID: [id number]. NOTE: For mammograms, a report in lay terms will be sent to the patient. Approximately 15% of breast malignancies will not be visualized mammographically. In the management of a palpable breast mass, a negative mammogram must not discourage biopsy of a clinically suspicious lesion. Electronically Signed By: Parvez Willis M.D. slc/:07/14/2021 13:16:40 ACR BI-RADS Category 0: Incomplete [id number]
--- NOTE | 2021-07-14 | DI.US.S_ITS ---
LIMITED ULTRASOUND OF LEFT BREAST: 07/14/2021 CLINICAL: Patient returns today to evaluate an asymmetry in the left breast. Comparison is made to exams dated: 07/14/2021 mammogram - [facility], 05/26/2021 mammogram, 02/29/2020 mammogram - [facility], 09/20/2018 mammogram, 08/12/2016 mammogram - [facility], and 02/14/2015 mammogram - [facility]. Color flow and real-time ultrasound of the left breast 12-2 o'clock region were performed. Avendano scale images of the real-time examination were reviewed. No significant abnormalities were seen sonographically in the left breast in the region of possible asymmetry. IMPRESSION: NEGATIVE There is no sonographic evidence of malignancy. A 1 year screening mammogram is recommended. Exam findings were conveyed to the patient. This exam was interpreted at Station ID: [id number]. Electronically Signed By: Parvez Willis M.D. slc/:07/14/2021 14:40:53 letter sent: Normal Exam Ultrasound BI-RADS: 1 Negative
== END ==
PROVIDERS: PCP Internal Medicine; Referring Provider Internal Medicine; Visit Provider Internal Medicine
DX: R92.8 Other abnormal and inconclusive findings on diagnostic imaging of breast (principal)
CPT/HCPCS: 76642; 77065; 87635; C9803; G0279

== ENCOUNTER → 2021-07-14 13:38 | Outpatient (CLI) | payer MEDICARE, OTHER, SELFPAY ==
[2021-07-14 17:26] LABS: COVID19 -Nasal RAPID Negative (Negative)
== END ==
PROVIDERS: PCP Internal Medicine; Visit Provider Physical Medicine & Rehabilitation
DX: Z20.822 Contact with and (suspected) exposure to COVID-19 (principal)
CPT/HCPCS: 87635; C9803

== ENCOUNTER 2021-07-16 12:31 | Outpatient (CLI) | payer MEDICARE, OTHER, SELFPAY ==
[2021-07-16] VITALS (9 sets, daily range): BP systolic 99–139; BP diastolic 54–94; PULSE 61–75; RESP 12–18; TEMP 36.8; O2SAT 95–99
--- NOTE | 2021-07-16 12:34 | DI.RAD.S_ITS ---
PROCEDURE: PAIN L/S TRANSFORAMINAL INJECT INDICATIONS: Spondylosis COMPARISON: None. FINDINGS: Fluoroscopic spot filming was performed to verify placement of spinal needles at the right L5-S1 neural foramen level(s), as labeled on the films. Appropriate location(s) of the needle tip(s) was confirmed by injection of iodinated contrast. IMPRESSION: [place] needle at the right L5-S1 neural foramen. Dictated by: Katharina Guerrero MD, PhD on 07/16/2021 at 15:21 Approved by: Katharina Guerrero MD, PhD on 07/16/2021 at 15:23
[2021-07-16] MEDS: MIDAZOLAM 2 MG/2 ML VIAL IV (13:49)
[2021-07-16] MEDS: fentaNYL 100 MCG/2 ML INJ (13:49)
[2021-07-16] MEDS: BETAMETHASONE 30 MG/5 ML MDV 6 MG INJ (13:53)
[2021-07-16] MEDS: IOPAMIDOL 15 ML VIAL 3 ML INJ (13:53)
[2021-07-16] MEDS: BUPIVACAINE 0.25% (PF) VIAL 2 ML INJ (13:53)
[2021-07-16] MEDS: DEXAMETHASONE 10 MG/ML VIAL 20 MG INJ (13:54)
--- NOTE | 2021-07-16 14:03 | P.PCN_ITS ---
Date/Time/Diagnoses Date of procedure: 07/16/21 Pre-procedure diagnosis: FORAMINAL STENOSIS WITH LE SYMPTOMS Post-procedure diagnosis: same Procedure Notes Procedure: 1. FLUOROSCOPICALLY GUIDED CONTRAST CONTROLLED TRANSFORAMINAL EPIDURAL STEROID INJECTION - RIGHT L5/S1 TFESI Indications: Radha is referred by Dr. Lewis for treatment of Foraminal Stenosis with Right LE Symptoms Physician: Hai Cordero Total Fluoroscopy time (seconds): 11 Total sedation minutes: 11 Complications: none Procedure in detail & Post-procedure care: FINDINGS Foraminal Nerve Root Compression secondary to disc disease and facet hypertrophy DESCRIPTION OF PROCEDURE Following review of allergy and review of potential side effects and complications, including, but not necessarily limited to, infection, allergic reaction, local tissue breakdown, stroke, temporary or permanent nerve injury, paralysis, and possible , the patient indicated that the patient understood and agreed to proceed. An informed consent document was signed by the patient, witnessed by a nurse, and placed in the patient's chart. Additionally, other treatment options including medications, modalities, and physical therapy were reviewed with the patient. After review of previous anaesthesic history and IV conscious sedation the patient was deemed safe to proceed with today?s procedure with IV conscious sedation as ASA class II designation. Safety time-out was performed to confirm patient ID, procedure to be performed and site of procedure. IV sedation was accomplished with a combination of 2mg of Versed and 50mcg of Fentanyl was administered by the RN after DO order, titrated to patient comfort during the course of the procedure while the patient remained responsive to all verbal commands In the prone position following sterile prep and drape of the lumbar region, the right L5/S1 posterior neuroforamen was identified fluoroscopically. The skin was anesthetized via a 25-gauge 1.5-inch needle with 1% lidocaine solution. At this point, a 25-gauge 3.5-inch spinal needle was atraumatically introduced and advanced under fluoroscopic guidance through the posterior right L5/S1 neuroforamen to approximately the anterior aspect of the canal. Depth was confirmed on lateral view. Following negative aspiration, injection of approximately 1.5cc of Isovue 200 under live fluoroscopy in the AP view confirmed excellent flow along the nerve root, into the epidural space without vascular or intrathecal uptake observed Radiological data, including multiple fluoroscopic views of the lumbosacral spine, reveal a spinal needle at the right L5/S1 posterior neuroforamen. Subsequent views show flow of contrast material flowing superiorly and inferiorly along the nerve root confirming epidural flow. Subsequently, a test dose of 1.5 cc of 1% lidocaine solution was administered and patient was observed for two minutes for signs or symptoms of complications, including abdominal pain, shortness of breath, bilateral upper or lower extremity weakness, nausea and vomiting, prior to steroid injection. At this point, a total of 3cc or 20mg of dexamethasone and 6mg of betamethasone was injected without incident. The procedure tolerated the procedure well without signs or symptoms of complications prior to transfer to the recovery area continued monitoring without incident. The patient was then transferred to the recovery area where they were observed for an appropriate time after the injection. The patient reported a VAS score of 7 prior to the procedure and a post- procedure VAS of 0. POST OP INSTRUCTIONS The patient was provided a Pain Log to continue to record their response to the target-specific procedure prior to follow-up visit with their referring physician. Additionally, specific post-injection care instructions and a contact number to our office were provided if concerns arise regarding possible complications associated with the procedure are suspected.
== END 2021-07-16 14:24 | disposition home or self-care (01) ==
LOC: RAD 12:32
PROVIDERS: PCP Internal Medicine; Referring Provider Physical Medicine & Rehabilitation; Visit Provider Physical Medicine & Rehabilitation
DX: M48.07 Spinal stenosis, lumbosacral region (principal); M51.17 Intervertebral disc disorders with radiculopathy, lumbosacral region
CPT/HCPCS: 64483; 99152; J0702; J1100; J2250; J3010

== ENCOUNTER → 2021-09-15 10:10 | Outpatient (CLI) | payer MEDICARE, OTHER, SELFPAY ==
[2021-09-15 12:41] LABS: COVID19 -Nasal RAPID Negative (Negative)
== END ==
PROVIDERS: PCP Internal Medicine; Visit Provider Physical Medicine & Rehabilitation
DX: Z20.822 Contact with and (suspected) exposure to COVID-19 (principal)
CPT/HCPCS: 87635; C9803

== ENCOUNTER 2021-09-17 14:41 | Outpatient (CLI) | payer MEDICARE, OTHER, SELFPAY ==
[2021-09-17] VITALS (9 sets, daily range): BP systolic 134–152; BP diastolic 63–86; PULSE 66–80; RESP 12–20; TEMP 36.7; O2SAT 96–99
--- NOTE | 2021-09-17 14:46 | DI.RAD.S_ITS ---
PROCEDURE: PAIN L/S FACET INJ/BLK 1ST [facility]RISTI COMPARISON: [facility], , PAIN L/S FACET INJ/BLK 1ST CHRISTI, 10/16/2020, 11:02. INDICATIONS: SPONDYLOSIS FINDINGS: Multiple intraoperative images demonstrate needle placement at the lumbosacral levels. IMPRESSION: Needle placement at the lumbosacral levels. Dictated by: Michael Almeida M.D. on 09/17/2021 at 16:21 Approved by: Michael Almeida M.D. on 09/17/2021 at 16:39
[2021-09-17] MEDS: MIDAZOLAM 2 MG/2 ML VIAL IV (15:46)
[2021-09-17] MEDS: IOPAMIDOL 15 ML VIAL 3 ML INJ (15:52)
[2021-09-17] MEDS: BUPIVACAINE 0.5% (PF) VIAL 5 ML INJ (15:52)
[2021-09-17] MEDS: LIDOCAINE 1% 20 ML (15:52)
--- NOTE | 2021-09-17 16:06 | PM.PROC.IR.1 ---
Date/Time/Diagnoses Date of procedure: 09/17/21 Time of procedure: 16:06 Pre-procedure diagnosis: 1. FACET ARTHROPATHY Post-procedure diagnosis: same Procedure Notes Procedure: 1. BILATERAL- L5 and S1 MB BLOCKS Indications: Radha is referred by Dr. Lewis for treatment of Bilateral Axial LBP. Physician: Hai Cordero Total Fluoroscopy time (seconds): 13 Total sedation minutes: 11 Complications: none Procedure in detail & Post-procedure care: DESCRIPTION OF PROCEDURE Fluoroscopically guided, contrast-controlled bilateral L5 and S1 medial branch blocks with 0.5cc of 0.5% Marcaine. Following review of allergy and review of potential side effects and complications, including, but not necessarily limited to, infection, allergic reaction, local tissue breakdown, nerve injury, paralysis, stroke and possible , the patient indicated that the patient understood and agreed to proceed. An informed consent document was signed by the patient, witnessed by a nurse, and placed in the patient's chart. After review of previous anaesthesic history and IV conscious sedation the patient was deemed safe to proceed with today?s procedure with IV conscious sedation as ASA class II designation. Safety time-out was performed to confirm patient ID, procedure to be performed and site of procedure. IV sedation was accomplished with a combination of 2mg of Versed was administered by the RN after DO order, titrated to patient comfort during the course of the procedure while the patient remained responsive to all verbal commands In the prone position, following sterile prep and drape of the lumbar region, the right L5 and S1 anatomical location of the medial branch of the dorsal ramus was identified fluoroscopically. Subsequently an anesthetic skin wheal using 1% lidocaine solution was initiated at each of the anatomical spots. Subsequently then a 22-gauge 3.5-inch spinal needle was atraumatically introduced and advanced under fluoroscopic guidance at each of the corresponding sites at the right L5 and S1 MB. After negative aspiration, 0.2 cc of Isovue 200 was injected, confirming placement without vascular or intrathecal uptake. Subsequently then 0.5 cc of 0.5% Marcaine solution was injected at each of the corresponding sites at the right L5 and S1 medial branch locations. The identical procedure was replicated on the left. The patient tolerated the procedure well without signs or symptoms of complications. The patient tolerated the procedure well without signs or symptoms of complications prior to transfer to the recovery area continued monitoring without incident. Post-procedure, the patient was monitored initiating provocative activities to measure the amount of relief from block of the facetogenic pain. The patient reported a VAS of 7 prior to the procedure and a post-procedure VAS of 1. It has been a pleasure to assist in the diagnostic and therapeutic care of your patient. POST OP INSTRUCTIONS The patient was provided with a Pain Log to complete over the next several hours and subsequent days prior to the patient's follow up with the ordering physician. If the patient has cosmetic manager relief to the solution applied, then they may be a candidate for medial branch rhizotomy. The patient is aware, was provided, once again, with a Pain Log and will follow up with the referring physician for review and clinical correlation.
== END 2021-09-17 16:25 | disposition home or self-care (01) ==
LOC: RAD 14:44
PROVIDERS: PCP Internal Medicine; Referring Provider Physical Medicine & Rehabilitation; Visit Provider Physical Medicine & Rehabilitation
DX: M47.817 Spondylosis without myelopathy or radiculopathy, lumbosacral region (principal)
CPT/HCPCS: 64493; 99152; J2250

== ENCOUNTER → 2022-01-25 10:13 | Outpatient (CLI) | payer MEDICARE, OTHER, SELFPAY ==
[2022-01-25 13:31] LABS: COVID19 -Nasal RAPID Negative (Negative)
== END ==
PROVIDERS: PCP Internal Medicine; Visit Provider Physical Medicine & Rehabilitation
DX: Z20.822 Contact with and (suspected) exposure to COVID-19 (principal)
CPT/HCPCS: 87635; C9803

== ENCOUNTER 2022-01-26 09:24 | Outpatient (CLI) | payer MEDICARE, OTHER, SELFPAY ==
[2022-01-26] VITALS (8 sets, daily range): BP systolic 137–193; BP diastolic 62–91; PULSE 62–71; RESP 13–22; TEMP 36.5; O2SAT 96–99
--- NOTE | 2022-01-26 09:27 | DI.RAD.S_ITS ---
PROCEDURE: PAIN SI JOINT INJECTION INDICATIONS: SACROILIAC DISORDER COMPARISON: [facility], , PAIN SI JOINT INJECTION, 05/14/2021, 15:33. FINDINGS: On these intraprocedural images, there is a spinal needle seen overlying the inferior aspect of the right sacroiliac joint. Appropriate position of the tip of the needle was confirmed by injection of a small amount of iodinated contrast. IMPRESSION: Successful sacroiliac joint injection. Dictated by: Jd Acosta M.D. on 01/26/2022 at 10:25 Approved by: Jd Acosta M.D. on 01/26/2022 at 10:28
[2022-01-26] MEDS: MIDAZOLAM 2 MG/2 ML VIAL IV (10:44)
[2022-01-26] MEDS: BUPIVACAINE 0.5% (PF) VIAL 2 ML INJ (10:48)
[2022-01-26] MEDS: IOPAMIDOL 15 ML VIAL 3 ML INJ (10:48)
[2022-01-26] MEDS: BETAMETHASONE 30 MG/5 ML MDV 12 MG INJ (10:49)
--- NOTE | 2022-01-26 10:57 | PM.PROC.IR.1 ---
Date/Time/Diagnoses Date of procedure: 01/26/22 Time of procedure: 10:58 Pre-procedure diagnosis: Sacroiliac joint pain/DJD Post-procedure diagnosis: same Procedure Notes Procedure: Fluoroscopically guided contrast controlled right sacroiliac joint injection Indications: Radha is referred by Dr. Lewis for treatment of right sacroiliac joint DJD Physician: Hai Cordero Total Fluoroscopy time (seconds): 23 Total sedation minutes: 9 Complications: none Procedure in detail & Post-procedure care: DESCRIPTION OF PROCEDURE Fluoroscopically guided, contrast controlled right sacroiliac joint injection Following review of allergies and review of potential side effects and complications, including, but not necessarily limited to, infection, allergic reaction, local tissue breakdown, temporary as well as permanent nerve injury, paralysis, stroke and possible , the patient indicated that they understood and agreed to proceed. An informed consent was signed by the patient, witnessed by a nurse, and placed in the patient's chart. Additionally, other treatment options including modalities, medications, and physical therapy were reviewed with the patient. After review of previous anaesthesic history and IV conscious sedation the patient was deemed safe to proceed with today?s procedure with IV conscious sedation as ASA class II designation. Safety time-out was performed to confirm patient ID, procedure to be performed and site of procedure. IV sedation was accomplished with a combination of 2mg of Versed was administered by the RN after DO order, titrated to patient comfort during the course of the procedure while the patient remained responsive to all verbal commands In the prone position following sterile prep and drape of the pelvic region, the hyper lucency on in the inferior aspect of the sacroiliac joint was identified fluoroscopically the skin was anesthetized be a 25 gauge 1 eventual with approximately 2 cc of 1% lidocaine solution. At this point, a 22 gauge 3 in spinal needle was atraumatically introduced and advanced under fluoroscopic guidance into the inferior aspect of the right sacroiliac joint. Following negative aspiration, approximately 0.3cc of Isovue-300 was injected confirming intra-articular placement without vascular uptake. Radiographic data, including multiple fluoroscopic views of the pelvis, reveals a spinal needle in the sacroiliac joint hyper lucent zone. Subsequent view show flow contrast tear superiorly and inferiorly within the joint capsule without vascular intrathecal uptake. At this point a total of 1cc of 0.5% Marcaine was combined with 1cc of 6 mg of betamethasone was injected without incident. The procedure tolerated the procedure well without signs or symptoms of complications prior to transfer to the recovery area continued monitoring without incident. The patient was then transferred to the recovery area with a bur observed for an appropriate time after the injection. The patient reverted a vas score of 7 prior to the procedure and post-procedure vas of 1. POSTOP INSTRUCTIONS The patient was provided with a pain like to continue to record the patient's response to the target specific procedure prior to the patient's follow-up visit with the referring physician. Additionally, specific post injection care instructions and a contact number to our office were provided if concerns arise regarding the possible complications associated with procedure are suspected.
== END 2022-01-26 11:16 | disposition home or self-care (01) ==
LOC: RAD 09:26
PROVIDERS: PCP Internal Medicine; Referring Provider Physical Medicine & Rehabilitation; Visit Provider Physical Medicine & Rehabilitation
DX: M53.3 Sacrococcygeal disorders, not elsewhere classified (principal); M46.1 Sacroiliitis, not elsewhere classified
CPT/HCPCS: 27096; J0702; J2250

== ENCOUNTER → 2022-05-27 10:31 | Outpatient (CLI) | payer MEDICARE, OTHER, SELFPAY ==
[2022-05-27 11:06] LABS: COVID19 -Nasal RAPID Negative (Negative)
== END ==
PROVIDERS: PCP Internal Medicine; Visit Provider Surgery
DX: Z01.812 Encounter for preprocedural laboratory examination (principal); Z20.822 Contact with and (suspected) exposure to COVID-19
CPT/HCPCS: 87635; C9803

== ENCOUNTER 2022-05-28 08:59 | Day surgery (SDC) | payer MEDICARE, OTHER, SELFPAY ==
--- NOTE | 2022-05-28 | PATH_ITS ---
[facility] Accession Number: [id number] No. of containers..03 Tissue . 01 Material submitted: . PART A: colon - ASCENDING COLON PART B: colon - DESCENDING COLON PART C: rectum - RECTUM . 01 Diagnosis: A. Ascending Colon, Polyp, Biopsy: Colonic mucosa with thickened muscularis mucosae, consistent with benign leiomyoma. Negative for atypia, epithelial dysplasia, and malignancy. Additional levels were examined. . B. Descending Colon, Polyp, Biopsy: Hyperplastic polyp. Additional levels were examined. . C. Rectum, Polyp, Biopsy: Tubular adenoma. MRV 06/03/2022 1224 Local . 01 Electronically signed: . Judi Zhu MD, Pathologist NPI- [id number] . 01 Gross description: . Part A: ASCENDING COLON: Received in formalin are 2 fragment(s) of pires, soft tissue measuring 0.2 x 0.2 x 0.2 cm to 0.3 x 0.2 x 0.2 cm submitted entirely in 1 cassette(s) Part B: DESCENDING COLON: Received in formalin is 1 fragment(s) of pires, soft tissue measuring 0.3 x 0.2 x 0.2 cm submitted entirely in 1 cassette(s) Part C: RECTUM: Received in formalin is 1 fragment(s) of pires, soft tissue measuring 0.6 x 0.3 x 0.2 cm submitted entirely in 1 cassette(s) /GRACIELA 05/31/2022 1843 Local . 01 Pathologist provided ICD-10: D12.8, K63.5 . 01 CPT . 413437, 909979, 434749 Specimen Comment: A courtesy copy of this report has been sent to [facility] Performed at: 01 [facility] [address] [facility] [place], [place], [place] [id number] MD Marc Robison MD Phone: [phone]
[2022-05-28 09:26] VITALS: BP 174/87; PULSE 73; RESP 16; TEMP 36.4; O2SAT 97; BMI 31.2
[2022-05-28] MEDS: LACTATED RINGERS 1,000 ML 84 ML IV (09:36)
--- NOTE | 2022-05-28 10:18 | P.HP_ITS ---
History of Present Illness History of Present Illness Chief complaint: [facility] [place] Narrative: Ms. Vega presents for a screening colonoscopy. She is had several polyps in the in the past. She relates that her 1st colonoscopy she had about 7 and then the next 1 she had a few less and so on and so on she is had a colonoscopy about every 3-5 years and the last colonoscopy she remembers she had 1 polyp. According to our record I have reviewed a colonoscopy report by Melissa cho from May 11, 2019. She biopsied 2 separate sites and only 1 of them came back as adenomatous and so this is consistent with which what Ms. Vega remembers. She has no family history of colon cancer though family members have had lots polyps. She is never had any abdominal surgery but has had several orthopedic surgeries. Patient History Medical History (Updated 12/29/21 @ 10:55 by Hai Cordero DO) Arthralgia, sacroiliac Degenerative joint disease of sacroiliac joint Diabetes Facet arthropathy, lumbar Herniated nucleus pulposus, L5-S1 Surgical History H/O laminectomy H/O spinal fusion History of hip surgery History of total knee arthroplasty History of total left hip arthroplasty Family & Social History Family History Mother Diabetes mellitus Hypertension Heart disease Social History: household members friend(s) Tobacco & Substance use: Smoking Status Former smoker alcohol intake current alcohol intake frequency holiday/special occasion Substance Use Type does not use Meds Home Medications and Allergies Home Medications Medication Instructions Recorded Confirmed Type allopurinol 100 mg tablet mg PO DAILY 05/14/20 12/28/21 History atorvastatin 20 mg tablet mg PO DAILY 05/14/20 12/28/21 History diclofenac sodium 1 % topical gel topical 05/14/20 12/28/21 History escitalopram oxalate 20 mg tablet mg PO DAILY 05/14/20 12/28/21 History hydrochlorothiazide 12.5 mg tablet mg PO DAILY 05/14/20 12/28/21 History loratadine 10 mg tablet mg PO DAILY 05/14/20 12/28/21 History losartan 100 mg tablet mg PO DAILY 05/14/20 12/28/21 History metformin 500 mg tablet,extended mg PO 05/14/20 12/28/21 History release 24 hr metoprolol succinate 50 mg mg PO 05/14/20 12/28/21 History tablet,extended release 24 hr tramadol 50 mg tablet mg PO DAILY PRN Pain (Scale Score 05/14/20 12/28/21 History 1-3) gabapentin 100 mg capsule 200 mg PO BEDTIME 09/24/20 05/28/22 History celecoxib 200 mg capsule (Celebrex) 200 mg PO DAILY 09/02/21 05/28/22 History clobetasol 0.05 % scalp solution ml topical 09/02/21 12/28/21 History dorzolamide 2 % eye drops 1 drp EYE-BOTH ONCE 09/02/21 05/28/22 History fluticasone propionate 50 spray intranasal 09/02/21 12/28/21 History mcg/actuation nasal spray,suspension latanoprost 0.005 % eye drops 1 drp EYE-BOTH DAILY 09/02/21 05/28/22 History lidocaine 5 % topical patch 1 patch topical DAILY 09/02/21 05/28/22 History mupirocin 2 % topical ointment g topical 09/02/21 12/28/21 History omeprazole 20 mg capsule,delayed 20 mg PO DAILY 09/02/21 05/28/22 History release timolol maleate 0.25 % eye drops 1 drp EYE-BOTH DAILY 09/02/21 05/28/22 History tizanidine 4 mg tablet (Zanaflex) 4 mg PO BEDTIME PRN muscle 11/11/21 05/28/22 Rx spasticity #60 tabs hydroxyzine HCl 25 mg tablet 25 mg PO .PRN 12/28/21 05/28/22 History Allergies Allergy/AdvReac Type Severity Reaction Status Date / Time lisinopril AdvReac Mild Cough Verified 05/28/22 09:16 Exam Vital Signs (past 8 hours): - 05/28/22 09:26 Temperature 97.5 F L Pulse Rate 73 Respiratory Rate 16 Blood Pressure 174/87 H Pulse Oximetry 97 Oxygen Delivery Method Room Air Oxygen Delivery Method Room Air Const General: cooperative, healthy appearing and comfortable [facility] Head: normal to inspection Resp Effort & Inspection: normal respiratory effort and able to speak in complete sentences GI Palpation: soft and No tender Assessment & Plan Assessment and plan (1) Personal history of colonic polyps: Status: Acute Assessment & Plan narrative: I discussed risks benefits and alternatives of a screening colonoscopy with Ms. Quick. I discussed perforation and incomplete exam: patient understands and would like to proceed. Time Spent With Patient Critical Care time: I spent a total of [] minutes of critical care time on this patient's care today; this time is exclusive of procedural time.
[2022-05-28 11:33] VITALS: BP 124/82; PULSE 68; RESP 16; TEMP 36.8; O2SAT 98
[2022-05-28 11:36] VITALS: BP 130/70; PULSE 66; RESP 16; TEMP 36.8; O2SAT 98
--- NOTE | 2022-05-28 11:36 | P.OP.COLON_ITS ---
Procedure & Clinicians Study performed: Colonoscopy and biopsy Same procedure as scheduled: Yes Indications: Screening and personal history of polyps Surgeon: Andree Saavedra Procedure Notes Procedure in detail: Patient was taken to the endoscopy suite and placed in left lateral decubitus position. A time-out was performed. Conscious sedation was performed by an esthesiologist Shaquille Brewer. Digital rectal exam was performed there were no strictures or masses. The colonoscope was introduced into the anal canal and advanced through to the cecum. She did require repositioning and pressure to intubate the cecum. A photograph was taken of the appendiceal orifice. The prep was good [place] bowel prep 2. Upon withdrawal of the scope in the ascending colon a very small polyp was seen and snared with a cold snare and sent for pathology. Upon further withdrawal additional polyp was seen in the descending colon which was snared in the same fashion. I did finally in the rectum a 3rd polyp was snared. Upon further examination that rectal polyp might have actually been more a descending. Previous tattoos in the colon from previous polypectomies were seen both in the ascending and descending colon. The sigmoid had scattered diverticula. Specimen(s): other (1. Ascending colon 2. Descending colon 3. Rectal) Post-procedure Plan for aftercare: Depending on the pathology results if all 3 polyps do come back as tubular adenomas the follow-up recommendation is 3-5 years
[2022-05-28 11:42] VITALS: PULSE 59; RESP 14; TEMP 36.4; O2SAT 97
[2022-05-28 11:45] VITALS: BP 135/66
== END 2022-05-28 12:02 | disposition home or self-care (01) ==
PROVIDERS: PCP Nurse Practitioner Family; Referring Provider Surgery; Visit Provider Surgery
PROC: 0DJD8ZZ Inspection of Lower Intestinal Tract, Via Natural or Artificial Opening Endoscopic (ICD-10-PCS; CPT 45378; principal; 2022-05-28 09:45)
DX: Z12.11 Encounter for screening for malignant neoplasm of colon (principal); Z86.010 Personal history of colon polyps; K63.5 Polyp of colon; K62.1 Rectal polyp
CPT/HCPCS: 45385; J2704

== ENCOUNTER → 2022-06-14 10:42 | Outpatient (CLI) | payer MEDICARE, OTHER, SELFPAY ==
--- NOTE | 2022-06-14 10:44 | DI.RAD.S_ITS ---
PROCEDURE: XR LUMBAR SPINE MIN 4V INDICATIONS: Status post fusion lumbosacral pain TECHNIQUE: 5 views of the lumbar spine were acquired, including bilateral oblique views. COMPARISON: [facility], XR LUMBAR SPINE 2 OR 3 VIEWS, 03/12/2020, 8:44. FINDINGS: Bones: 5 nonrib-bearing vertebrae are present. There is posterior fusion from L2 through L5 is present. Intervertebral spacers are present at L2-3, L3-4 and L4-5. All hardware is intact without evidence hardware fracture or periprosthetic lucency. Severe disc and foraminal narrowing are present at L5-S1 as well as severe disc space narrowing at L1-2. Left hip arthroplasty is present.. No vertebral body compression fractures. No suspicious bony lesions. Soft tissues: Overlying bowel gas pattern is normal. No suspicious soft tissue calcifications. Oblique images: No pars defects. IMPRESSION: Progressive degenerative change including disc space and foraminal narrowing at L5-S1. Dictated by: Lexy Eldridge M.D. on 06/14/2022 at 15:32 Approved by: Lexy Eldridge M.D. on 06/14/2022 at 15:33
== END ==
PROVIDERS: PCP Nurse Practitioner Family; Referring Provider Physical Medicine & Rehabilitation; Visit Provider Physical Medicine & Rehabilitation
DX: M53.3 Sacrococcygeal disorders, not elsewhere classified (principal); M48.07 Spinal stenosis, lumbosacral region; M47.817 Spondylosis without myelopathy or radiculopathy, lumbosacral region; Z98.1 Arthrodesis status
CPT/HCPCS: 72110

== ENCOUNTER 2022-06-17 09:06 | Outpatient (CLI) | payer MEDICARE, OTHER, SELFPAY ==
[2022-06-17] VITALS (8 sets, daily range): BP systolic 150–181; BP diastolic 69–81; PULSE 62–74; RESP 12–20; TEMP 37; O2SAT 96–99
--- NOTE | 2022-06-17 09:09 | DI.RAD.S_ITS ---
PROCEDURE: PAIN SI JOINT INJECTION INDICATIONS: JOINT DYSFUNCTION COMPARISON: [facility], XA, PAIN SI JOINT INJECTION, 01/26/2022, 10:47. FINDINGS: Fluoroscopic spot filming was performed to verify placement of spinal needles at the sacroiliac level(s), as labeled on the films. Appropriate location(s) of the needle tip(s) was confirmed by injection of iodinated contrast. IMPRESSION: Needle placement as above Dictated by: Michael Almeida M.D. on 06/17/2022 at 10:58 Transcribed by: CHUCK on 06/17/2022 at 10:58 Approved by: Michael Almeida M.D. on 06/17/2022 at 16:29
[2022-06-17] MEDS: MIDAZOLAM 2 MG/2 ML VIAL IV (10:26)
[2022-06-17] MEDS: IOPAMIDOL 15 ML VIAL 3 ML INJ (10:28)
[2022-06-17] MEDS: BETAMETHASONE 30 MG/5 ML MDV 12 MG INJ (10:29)
[2022-06-17] MEDS: BUPIVACAINE 0.5% MDV 5 ML SUBCUT (10:29)
--- NOTE | 2022-06-17 10:51 | P.PCN_ITS ---
Date/Time/Diagnoses Date of procedure: 06/17/22 Time of procedure: 10:51 Pre-procedure diagnosis: Sacroiliac joint pain/DJD Post-procedure diagnosis: same Procedure Notes Procedure: Fluoroscopically guided contrast controlled right sacroiliac joint injection Indications: Radha is referred by ISABELA Fenton for treatment of right sacroiliac joint DJD Physician: Hai Cordero Total Fluoroscopy time (seconds): 13 Total sedation minutes: 12 Complications: none Procedure in detail & Post-procedure care: DESCRIPTION OF PROCEDURE Fluoroscopically guided, contrast controlled right sacroiliac joint injection Following review of allergies and review of potential side effects and complications, including, but not necessarily limited to, infection, allergic reaction, local tissue breakdown, temporary as well as permanent nerve injury, paralysis, stroke and possible , the patient indicated that they understood and agreed to proceed. An informed consent was signed by the patient, witnessed by a nurse, and placed in the patient's chart. Additionally, other treatment options including modalities, medications, and physical therapy were reviewed with the patient. After review of previous anaesthesic history and IV conscious sedation the patient was deemed safe to proceed with today?s procedure with IV conscious sedation as ASA class II designation. Safety time-out was performed to confirm patient ID, procedure to be performed and site of procedure. IV sedation was accomplished with a combination of 2mg of Versed was administered by the RN after DO order, titrated to patient comfort during the course of the procedure while the patient remained responsive to all verbal commands In the prone position following sterile prep and drape of the pelvic region, the hyper lucency on in the inferior aspect of the sacroiliac joint was identified fluoroscopically the skin was anesthetized be a 25 gauge 1 eventual with approximately 2 cc of 1% lidocaine solution. At this point, a 22 gauge 3 in spi nal needle was atraumatically introduced and advanced under fluoroscopic guidance into the inferior aspect of the right sacroiliac joint. Following negative aspiration, approximately 0.3cc of Isovue-300 was injected confirming intra-articular placement without vascular uptake. Radiographic data, including multiple fluoroscopic views of the pelvis, reveals a spinal needle in the sacroiliac joint hyper lucent zone. Subsequent view show flow contrast tear superiorly and inferiorly within the joint capsule without vascular intrathecal uptake. At this point a total of 1cc of 0.5% Marcaine was combined with 1cc of 6 mg of betamethasone was injected without incident. The procedure tolerated the procedure well without signs or symptoms of complications prior to transfer to the recovery area continued monitoring without incident. The patient was then transferred to the recovery area with a bur observed for an appropriate time after the injection. The patient reverted a vas score of 7 prior to the procedure and post-procedure vas of 1. POSTOP INSTRUCTIONS The patient was provided with a pain like to continue to record the patient's response to the target specific procedure prior to the patient's follow-up visit with the referring physician. Additionally, specific post injection care instructions and a contact number to our office were provided if concerns arise regarding the possible complications associated with procedure are suspected.
== END 2022-06-17 11:00 | disposition home or self-care (01) ==
LOC: RAD 09:08
PROVIDERS: PCP Nurse Practitioner Family; Referring Provider Physical Medicine & Rehabilitation; Visit Provider Physical Medicine & Rehabilitation
DX: M53.3 Sacrococcygeal disorders, not elsewhere classified (principal); M46.1 Sacroiliitis, not elsewhere classified
CPT/HCPCS: 27096; 99152; J0702; J2250

== ENCOUNTER → 2022-10-20 06:42 | Outpatient (CLI) | payer MEDICARE, OTHER, SELFPAY ==
--- NOTE | 2022-10-20 06:44 | DI.MRI.S_ITS ---
PROCEDURE: MR LUMBAR SPINE WO CON INDICATIONS: progeressive Lower back pains TECHNIQUE: Noncontrast sagittal T1 spin echo and T2 fast echo, sagittal STIR, and T2 fast spin echo through the lumbar spine. In cases with scoliosis, additional coronal T2 fast spin echo may be performed. COMPARISON: [facility], MR, MR LUMBAR SPINE WO CON, 03/18/2020, 10:04. FINDINGS: Image quality: Excellent. Alignment and Curvature: Posterior transpedicular fusion and disc spacer hardware from L2 through L5. Bone alignment is stable. Bone Marrow: There are chronic, prominent type 2 Modic changes in the endplates of L2 through L5. There is partial bony ankylosis of vertebral bodies two through five and osteophytes surrounding disc spacer hardware. Mild, chronic mixed type 1 and two Modic changes and endplate osteophytes at L5-S1. No new bone edema. Spinal Cord: Conus medullaris terminates at the T12-L1 level. Visualized cord demonstrates normal signal and size. Paraspinous Soft Tissues: No paravertebral masses. T11-12: Chronic moderate disc height loss and mild circumferential disc bulge. No progression. T12-L1: Minor circumferential disc osteophyte. Mild facet arthropathy. No progression. L1-L2: Mild circumferential disc bulge. Slight progressive flattening of the anterior CSF space. No significant central canal or foraminal stenosis. L2-L3: Moderate, stable circumferential endplate spurring. Moderate, stable facet arthropathy. No change in mild left-sided foraminal stenosis. Stable, mild central canal narrowing. L3-L4: Stable moderate circumferential osteophyte and prominent facet arthropathy. This results in moderate central canal stenosis. There is slight encroachment on the right lateral recess, though not significantly progressed since prior. Stable, mild to moderate left foraminal narrowing due to facet arthropathy. L4-L5: Moderate circumferential endplate osteophyte. Right hemilaminectomy change. Moderate left ligamentum flavum hypertrophy. Contact of the right facet on the right lateral recess nerve root is stable. Mild central canal narrowing is unchanged. Probable mild to moderate right foraminal narrowing, though partially obscured by artifact. Chronic, moderate left foraminal narrowing. L5-S1: Moderate, chronic broad-based posterior disc bulge. Prominent ligamentum flavum hypertrophy and moderate to severe central canal stenosis, unchanged. [id number] left, and moderate to severe right neural foraminal narrowing, similar. IMPRESSION: 1. Stable surgical changes from L2 through L5. 2. Slight progression of minimal central canal narrowing at L1-2. 3. No significant change to multilevel bilateral neural foraminal, and central canal narrowing, most severe at L5-S1. Dictated by: Karla Araiza M.D. on 10/20/2022 at 9:18 Approved by: Karla Araiza M.D. on 10/20/2022 at 9:38
== END ==
PROVIDERS: PCP Nurse Practitioner Family; Referring Provider Physical Medicine & Rehabilitation; Visit Provider Physical Medicine & Rehabilitation
DX: M48.061 Spinal stenosis, lumbar region without neurogenic claudication (principal); M48.07 Spinal stenosis, lumbosacral region; M51.17 Intervertebral disc disorders with radiculopathy, lumbosacral region; M47.26 Other spondylosis with radiculopathy, lumbar region; Z98.1 Arthrodesis status
CPT/HCPCS: 72148

== ENCOUNTER → 2022-11-11 09:49 | Outpatient (CLI) | payer MEDICARE, OTHER, SELFPAY | PROVIDERS: Referring Provider Orthopaedic Surgery Orthopaedic Surgery of the Spine; Visit Provider Orthopaedic Surgery Orthopaedic Surgery of the Spine | DX: Z01.818 Encounter for other preprocedural examination (principal) | CPT/HCPCS: 93005; 93010 ==

== ENCOUNTER → 2023-04-04 08:47 | Outpatient (CLI) | payer MEDICARE, OTHER, SELFPAY ==
--- NOTE | 2023-04-04 08:48 | DI.RAD.S_ITS ---
PROCEDURE: XR CERVICAL SPINE 4V OR 5V INDICATIONS: neck pain and upper extremity paresthesias TECHNIQUE: 5 views of the cervical spine acquired. COMPARISON: None. FINDINGS: Bones: No fractures or dislocations to the C7 level. Oblique images demonstrate no bony foraminal stenoses. Multilevel disc space narrowing and endplate osteophyte formation, as well as facet hypertrophy. Soft tissues: No prevertebral soft tissue swelling. IMPRESSION: Multilevel degenerative disc and facet disease. No acute fracture. No osseous lesion. If symptoms and/or clinical suspicion for pathology persist, further assessment with repeat, or advanced imaging (e.g., CT, MRI, or bone scan) may be helpful for further assessment. Dictated by: Michael Almeida M.D. on 04/04/2023 at 11:41 Approved by: Michael Almeida M.D. on 04/04/2023 at 11:41
== END ==
PROVIDERS: Referring Provider Physical Medicine & Rehabilitation; Visit Provider Physical Medicine & Rehabilitation
DX: M47.812 Spondylosis without myelopathy or radiculopathy, cervical region (principal); M50.10 Cervical disc disorder with radiculopathy, unspecified cervical region; M54.12 Radiculopathy, cervical region; M47.22 Other spondylosis with radiculopathy, cervical region; M53.3 Sacrococcygeal disorders, not elsewhere classified; M46.1 Sacroiliitis, not elsewhere classified; E11.69 Type 2 diabetes mellitus with other specified complication; M47.816 Spondylosis without myelopathy or radiculopathy, lumbar region; M51.27 Other intervertebral disc displacement, lumbosacral region; Z96.642 Presence of left artificial hip joint; Z96.651 Presence of right artificial knee joint
CPT/HCPCS: 72050; 99215

== ENCOUNTER 2023-04-12 09:26 | Outpatient (CLI) | payer MEDICARE, OTHER, SELFPAY ==
[2023-04-12] VITALS (8 sets, daily range): BP systolic 137–177; BP diastolic 65–85; PULSE 67–77; RESP 10–20; TEMP 36.6; O2SAT 96–98
--- NOTE | 2023-04-12 10:15 | DI.RAD.S_ITS ---
PROCEDURE: PAIN SI JOINT INJECTION INDICATIONS: SACROILLIAC DISORDER COMPARISON: [facility], , PAIN SI JOINT INJECTION, 06/17/2022, 11:28. FINDINGS: Fluoroscopic spot filming was performed to verify placement of spinal needles at the right sacroiliac joint, as labeled on the films. Appropriate location(s) of the needle tip(s) was confirmed by injection of iodinated contrast. IMPRESSION: Right sacroiliac joint needle placement with contrast injection. Approved by: Blanca Lackey M.D. on 04/12/2023 at 21:30
[2023-04-12] MEDS: MIDAZOLAM 2 MG/2 ML VIAL IV (11:05)
[2023-04-12] MEDS: BUPIVACAINE 0.5% (PF) 10 ML VIAL 2 ML INJ (11:08)
[2023-04-12] MEDS: iopamidoL 15 ML VIAL 3 ML INJ (11:08)
[2023-04-12] MEDS: BETAMETHASONE 30 MG/5 ML MDV 12 MG INJ (11:09)
--- NOTE | 2023-04-12 11:17 | PM.PROC.IR.1 ---
Date/Time/Diagnoses Date of procedure: 05/11/23 Time of procedure: 11:17 Pre-procedure diagnosis: Sacroiliac joint pain/DJD Post-procedure diagnosis: same Procedure Notes Procedure: Fluoroscopically guided contrast controlled right sacroiliac joint injection Indications: Radha is referred for treatment of right sacroiliac joint DJD Physician: Hai Cordero Total Fluoroscopy time (seconds): 6 Total sedation minutes: 10 Complications: none Procedure in detail & Post-procedure care: DESCRIPTION OF PROCEDURE Fluoroscopically guided, contrast controlled right sacroiliac joint injection Following review of allergies and review of potential side effects and complications, including, but not necessarily limited to, infection, allergic reaction, local tissue breakdown, temporary as well as permanent nerve injury, paralysis, stroke and possible , the patient indicated that they understood and agreed to proceed. An informed consent was signed by the patient, witnessed by a nurse, and placed in the patient's chart. Additionally, other treatment options including modalities, medications, and physical therapy were reviewed with the patient. After review of previous anaesthesic history and IV conscious sedation the patient was deemed safe to proceed with today?s procedure with IV conscious sedation as ASA class II designation. Safety time-out was performed to confirm patient ID, procedure to be performed and site of procedure. IV sedation was accomplished with a combination of 2mg of Versed was administered by the RN after DO order, titrated to patient comfort during the course of the procedure while the patient remained responsive to all verbal commands In the prone position following sterile prep and drape of the pelvic region, the hyper lucency on in the inferior aspect of the sacroiliac joint was identified fluoroscopically the skin was anesthetized be a 25 gauge 1 eventual with approximately 2 cc of 1% lidocaine solution. At this point, a 22 gauge 3 in spinal needle was atraumatically introduced and advanced under fluoroscopic guidance into the inferior aspect of the right sacroiliac joint. Following negative aspiration, approximately 0.3cc of Isovue-300 was injected confirming intra-articular placement without vascular uptake. Radiographic data, including multiple fluoroscopic views of the pelvis, reveals a spinal needle in the sacroiliac joint hyper lucent zone. Subsequent view show flow contrast tear superiorly and inferiorly within the joint capsule without vascular intrathecal uptake. At this point a total of 1cc of 0.5% Marcaine was combined with 1cc of 6 mg of betamethasone was injected without incident. The procedure tolerated the procedure well without signs or symptoms of complications prior to transfer to the recovery area continued monitoring without incident. The patient was then transferred to the recovery area with a bur observed for an appropriate time after the injection. The patient reverted a vas score of 7 prior to the procedure and post-procedure vas of 1. POSTOP INSTRUCTIONS The patient was provided with a pain like to continue to record the patient's response to the target specific procedure prior to the patient's follow-up visit with the referring physician. Additionally, specific post injection care instructions and a contact number to our office were provided if concerns arise regarding the possible complications associated with procedure are suspected.
== END 2023-04-12 11:36 | disposition home or self-care (01) ==
LOC: RAD 09:27
PROVIDERS: Referring Provider Physical Medicine & Rehabilitation; Visit Provider Physical Medicine & Rehabilitation
DX: M53.3 Sacrococcygeal disorders, not elsewhere classified (principal); M46.1 Sacroiliitis, not elsewhere classified
CPT/HCPCS: 27096; 77002; 99152; J0702; J2250

== ENCOUNTER → 2023-04-15 10:39 | Outpatient (CLI) | payer MEDICARE, OTHER, SELFPAY ==
--- NOTE | 2023-04-15 11:00 | DI.MRI.S_ITS ---
PROCEDURE: MR CERVICAL SPINE WO/W CON INDICATIONS: neck pain and ue paresthesias TECHNIQUE: Noncontrast sagittal T1 spin echo and T2 fast spin echo, sagittal STIR, foraminal oblique sagittal T2 fast spin echo, axial gradient echo or T2 fast spin echo through the cervical spine. After the administration of contrast, axial and sagittal T1 spin echo with fat saturation through the cervical spine. COMPARISON: [facility], , C-SPINE WITHOUT CONTRAST, 04/22/2014, 14:12. FINDINGS: Image quality: Excellent. Alignment and curvature: Straightening of the normal cervical lordosis. Marrow: Marrow is normal in overall signal, without suspicious enhancement. Spinal cord: Visualized spinal cord has normal size and signal. No cerebellar tonsillar herniation. No abnormal intramedullary enhancement. Paraspinous soft tissues: No paravertebral masses or suspicious enhancement. C2-3: Disc desiccation. No central canal or neural foraminal stenosis. C3-4: Disc desiccation. No central canal stenosis. Facet arthropathy. Mild bilateral neural foraminal stenosis. C4-5: Disc desiccation height loss. Posterior disc osteophyte complex with superimposed central disc protrusion abutting and indenting the cord. This is mildly progressed compared to prior. Moderate to severe central canal stenosis. Facet and uncovertebral arthropathy. Mild left and moderate right neural foraminal stenosis is mildly progressed. C5-6: Disc desiccation height loss. Posterior disc osteophyte complex abutting and impinging the cord with complete loss of CSF space. Severe central canal stenosis, progressed compared to prior. Facet and uncovertebral arthropathy. Severe neural foraminal stenosis. C6-7: Disc desiccation height loss. Posterior disc osteophyte complex with mild progression in the right lateral recess. Severe central canal stenosis. Facet and uncovertebral arthropathy. Severe bilateral neural foraminal stenosis. C7-T1: Disc desiccation height loss. Mild posterior disc osteophyte complex. Mild central canal stenosis. Facet and uncovertebral arthropathy. Severe left and moderate right neural foraminal stenosis IMPRESSION: 1. Multilevel degenerative changes of the cervical spine which are progressed compared to 2014. 2. Severe central canal stenosis at C5-C6 and C6-C7. Moderate to severe central canal stenosis at C4-C5 is progressed. 3. Severe bilateral neural foraminal stenosis C5-C6 and C6-C7. Severe left neural foraminal stenosis at C7-T1. Dictated by: Patric Colon M.D. on 04/15/2023 at 12:29 Approved by: Patric Colon M.D. on 04/15/2023 at 12:38
== END ==
PROVIDERS: Referring Provider Physical Medicine & Rehabilitation; Visit Provider Physical Medicine & Rehabilitation
DX: M47.22 Other spondylosis with radiculopathy, cervical region (principal); M48.02 Spinal stenosis, cervical region
CPT/HCPCS: 72156; A9579

== ENCOUNTER → 2023-10-20 09:33 | Outpatient (CLI) | payer MEDICARE, OTHER, SELFPAY ==
[2023-10-20] VITALS (7 sets, daily range): BP systolic 123–149; BP diastolic 60–79; PULSE 60–73; RESP 12–18; TEMP 36.6; O2SAT 96–100
--- NOTE | 2023-10-20 10:15 | DI.RAD.S_ITS ---
PROCEDURE: PAIN L INTERLAMINAR/CAUDAL INJ INDICATIONS: L4-5 translaminar SARA COMPARISON: [facility], , PAIN L INTERLAMINAR/CAUDAL INJ, 06/03/2020, 9:02. FINDINGS: Fluoroscopic spot filming was performed to verify placement of spinal needle at the L4-5 level, as labeled on the films. Appropriate location of the needle tip was confirmed by injection of iodinated contrast. IMPRESSION: Intraprocedural examination demonstrates appropriate needle positioning. Approved by: Niko Villa M.D. on 10/20/2023 at 21:39
[2023-10-20] MEDS: MIDAZOLAM 2 MG/2 ML VIAL IV (10:57)
--- NOTE | 2023-10-20 11:01 | PC.NURSE ---
Patient's ST segment of her ECG appears slightly elevated. Patient denies any cardiac signs/symptoms including chest pain, SOB, Left shoulder pain. Dr. Cordero shown. Dr. Cordero will determine if patient needs a 12 lead ECG in post procedure at end of case. Rhythm strip printed and sent with patient.
--- NOTE | 2023-10-20 11:11 | P.PCN_ITS ---
Date/Time/Diagnoses Date of procedure: 10/20/23 Time of procedure: 11:11 Pre-procedure diagnosis: 1. HNP WITH RADICULAR FEATURES, 2. MULTILEVEL CENTRAL STENOSIS, Post-procedure diagnosis: same Procedure Notes Procedure: 1. FLUOROSCOPICALLY GUIDED CONTRAST CONTROLLED INTERLAMINAR EPIDURAL STEROID INJECTION -L4/5 Indications: Radha is referred for treatment of Bilateral Foraminal Stenosis R>L LE symptoms. Physician: Hai Cordero Total Fluoroscopy time (seconds): 8 Total sedation minutes: 10 Complications: none Procedure in detail & Post-procedure care: FINDINGS Multilevel Central Spinal Stenosis with Nerve Root Compression DESCRIPTION OF PROCEDURE Fluoroscopically guided, contrast-controlled L4/5 translaminar epidural steroid injection. Following review of allergy and review of potential side effects and complications, including, but not necessarily limited to, infection, allergic reaction, local tissue breakdown, temporary as well as permanent nerve injury, paralysis, stroke and possible , the patient indicated that the patient understood and agreed to proceed. An informed consent document was signed by the patient, witnessed by a nurse, and placed in the patient's chart. Additionally, other treatment options including modalities, medications, and physical therapy were reviewed with the patient. After review of previous anaesthesic history and IV conscious sedation the patient was deemed safe to proceed with today?s procedure with IV conscious sedation as ASA class II designation. Safety time-out was performed to confirm patient ID, procedure to be performed and site of procedure. IV sedation was accomplished with a combination of 2mg of Versed was administered by the RN after DO order, titrated to patient comfort during the course of the procedure while the patient remained responsive to all verbal commands In the prone position, following sterile prep and drape of the lumbar region, the L4/5 translaminar space was identified fluoroscopically. The skin was anesthetized via a 25-gauge, 1.5inch needle with 1% lidocaine solution. At this point, a 22-gauge short bevel spinal needle was atraumatically introduced and advanced under fluoroscopic guidance into the region of the L4/5 translaminar space. Depth was confirmed on lateral view. Radiological data, including multiple fluoroscopic views of the lumbar spine, reveal a spinal needle at the L4/5 translaminar space. Lateral views then show placement of the needle in the epidural space. Subsequent views show contrast material flowing superiorly and inferiorly in the epidural space. No vascular or intrathecal uptake is observed. At this point, using loss of resistance technique with saline and air, the epidural space was entered. This was confirmed following negative aspiration with injection of approximately 1.5cc of Isovue 200, showing excellent epidural flow without vascular or intrathecal uptake. At this point, 1cc of 1% lidocaine solution combined with 2cc or 10mg of dexamethasone and 6mg betamethasone was injected without incident. The patient tolerated the procedure well without signs or symptoms of complications prior to transfer to the recovery area continued monitoring without incident. The patient was then transferred to the recovery area where they were observed for an appropriate period of time after the injection. The patient reported a VAS score of 6 prior to the procedure and a post- procedure VAS of 0. POST OP INSTRUCTIONS The patient was provided a Pain Log to continue to record their response to the target-specific procedure prior to follow-up visit with their referring physician. Additionally, specific post-injection care instructions and a contact number to our office were provided if concerns arise regarding possible complications associated with the procedure are suspected.
[2023-10-20] MEDS: BUPIVACAINE 0.25% (PF) VIAL 2 ML INJ (11:22)
[2023-10-20] MEDS: DEXAMETHASONE 10 MG/ML VIAL INJ (11:22)
[2023-10-20] MEDS: iopamidoL 15 ML VIAL 3 ML INJ (11:23)
[2023-10-20] MEDS: BETAMETHASONE 30 MG/5 ML MDV 6 MG INJ (11:23)
--- NOTE | 2023-10-20 11:51 | EKG_ITS ---
[address] [address] Test Date: 2023-10-20 Pat Name: Radha Vega Department: Room: Gender: Female Import Export Clerk: ELIEZER : [id number] Requested By: Order Number: [id number] Reading MD: Jeremy Garcia MD Measurements Intervals [place] Rate: 58 P: 9 DE: 176 QRS: -8 QRSD: 80 T: 6 QT: 448 QTc: 439 Interpretive Statements Sinus bradycardia Minimal voltage criteria for LVH, may be normal variant ( R in aVL ) Electronically Signed On 10-20-2023 14:34:38 PDT by Jeremy Garcia MD
== END ==
PROVIDERS: Referring Provider Physical Medicine & Rehabilitation; Visit Provider Physical Medicine & Rehabilitation
DX: M51.16 Intervertebral disc disorders with radiculopathy, lumbar region (principal); M48.061 Spinal stenosis, lumbar region without neurogenic claudication; Z13.6 Encounter for screening for cardiovascular disorders
CPT/HCPCS: 62323; 93005; 93010; 99152; J0702; J1100; J2250; J3490

== ENCOUNTER 2024-07-17 08:22 | Outpatient (CLI) | payer MEDICARE, OTHER, SELFPAY ==
[2024-07-17] VITALS (9 sets, daily range): BP systolic 133–185; BP diastolic 65–87; PULSE 83–90; RESP 14–18; TEMP 36.9; O2SAT 94–97
[2024-07-17] MEDS: MIDAZOLAM 2 MG/2 ML VIAL IV (09:11)
[2024-07-17] MEDS: DEXAMETHASONE 10 MG/ML VIAL INJ (09:17)
[2024-07-17] MEDS: BUPIVACAINE 0.25% (PF) VIAL 2 ML INJ (09:17)
[2024-07-17] MEDS: BETAMETHASONE 30 MG/5 ML MDV 12 MG INJ (09:18)
[2024-07-17] MEDS: iopamidoL 15 ML VIAL 3 ML INJ (09:18)
--- NOTE | 2024-07-17 09:28 | P.PCN_ITS ---
Date/Time/Diagnoses Date of procedure: 07/17/24 Time of procedure: 09:28 Pre-procedure diagnosis: FORAMINAL STENOSIS WITH LE SYMPTOMS Post-procedure diagnosis: same Procedure Notes Procedure: 1. FLUOROSCOPICALLY GUIDED CONTRAST CONTROLLED TRANSFORAMINAL EPIDURAL STEROID INJECTION - RIGHT L5/S1 TFESI Indications: Radha is referred for treatment of Foraminal Stenosis with Right LE Symptoms Physician: Hai Cordero Total Fluoroscopy time (seconds): 11 Total sedation minutes: 13 Complications: none Procedure in detail & Post-procedure care: FINDINGS Foraminal Nerve Root Compression secondary to disc disease and facet hypertrophy DESCRIPTION OF PROCEDURE Following review of allergy and review of potential side effects and complications, including, but not necessarily limited to, infection, allergic reaction, local tissue breakdown, stroke, temporary or permanent nerve injury, paralysis, and possible , the patient indicated that the patient understood and agreed to proceed. An informed consent document was signed by the patient, witnessed by a nurse, and placed in the patient's chart. Additionally, other treatment options including medications, modalities, and physical therapy were reviewed with the patient. After review of previous anaesthesic history and IV conscious sedation the patient was deemed safe to proceed with today?s procedure with IV conscious sedation as ASA class II designation. Safety time-out was performed to confirm patient ID, procedure to be performed and site of procedure. IV sedation was accomplished with a combination of 2mg of Versed was administered by the RN after DO order, titrated to patient comfort during the course of the procedure while the patient remained responsive to all verbal commands In the prone position following sterile prep and drape of the lumbar region, the right L5/S1 posterior neuroforamen was identified fluoroscopically. The skin was anesthetized via a 25-gauge 1.5-inch needle with 1% lidocaine solution. At this point, a 25-gauge 3.5-inch spinal needle was atraumatically introduced and advanced under fluoroscopic guidance through the posterior right L5/S1 neuroforamen to approximately the anterior aspect of the canal. Depth was confirmed on lateral view. Following negative aspiration, injection of approximately 1.5cc of Isovue 200 under live fluoroscopy in the AP view confirmed excellent flow along the nerve root, into the epidural space without vascular or intrathecal uptake observed Radiological data, including multiple fluoroscopic views of the lumbosacral spine, reveal a spinal needle at the right L5/S1 posterior neuroforamen. Subsequent views show flow of contrast material flowing superiorly and inferiorly along the nerve root confirming epidural flow. Subsequently, a test dose of 1.5 cc of 1% lidocaine solution was administered and patient was observed for two minutes for signs or symptoms of complications, including abdominal pain, shortness of breath, bilateral upper or lower extremity weakness, nausea and vomiting, prior to steroid injection. At this point, a total of 2cc or 10mg of dexamethasone and 6mg of betamethasone was injected without incident. The procedure tolerated the procedure well without signs or symptoms of complications prior to transfer to the recovery area continued monitoring without incident. The patient was then transferred to the recovery area where they were observed for an appropriate time after the injection. The patient reported a VAS score of 7 prior to the procedure and a post- procedure VAS of 1. POST OP INSTRUCTIONS The patient was provided a Pain Log to continue to record their response to the target-specific procedure prior to follow-up visit with their referring physician. Additionally, specific post-injection care instructions and a contact number to our office were provided if concerns arise regarding possible complications associated with the procedure are suspected.
== END 2024-07-17 09:51 | disposition home or self-care (01) ==
PROVIDERS: Referring Provider Physical Medicine & Rehabilitation; Visit Provider Physical Medicine & Rehabilitation
DX: M48.07 Spinal stenosis, lumbosacral region (principal); M51.17 Intervertebral disc disorders with radiculopathy, lumbosacral region; M47.27 Other spondylosis with radiculopathy, lumbosacral region
CPT/HCPCS: 64483; 99152; J0702; J1100; J2250; J3490

== ENCOUNTER 2024-11-13 09:58 | Outpatient (CLI) | payer MEDICARE, OTHER, SELFPAY ==
[2024-11-13] VITALS (9 sets, daily range): BP systolic 121–149; BP diastolic 61–89; PULSE 79–90; RESP 14–18; TEMP 36.9; O2SAT 96–99
[2024-11-13] MEDS: MIDAZOLAM 2 MG/2 ML VIAL IV (11:31)
[2024-11-13] MEDS: DEXAMETHASONE 10 MG/ML VIAL INJ (11:36)
[2024-11-13] MEDS: BUPIVACAINE 0.25% (PF) VIAL 2 ML INJ (11:37)
[2024-11-13] MEDS: BETAMETHASONE 30 MG/5 ML MDV 12 MG INJ (11:37)
--- NOTE | 2024-11-13 11:47 | P.PCN_ITS ---
Date/Time/Diagnoses Date of procedure: 11/13/24 Time of procedure: 11:47 Pre-procedure diagnosis: FORAMINAL STENOSIS WITH LE SYMPTOMS Post-procedure diagnosis: same Procedure Notes Procedure: 1. FLUOROSCOPICALLY GUIDED CONTRAST CONTROLLED TRANSFORAMINAL EPIDURAL STEROID INJECTION - RIGHT L5/S1 TFESI Indications: Radha is referred for treatment of Foraminal Stenosis with Right LE Symptoms Physician: Hai Cordero Total Fluoroscopy time (seconds): 7 Total sedation minutes: 12 Complications: none Procedure in detail & Post-procedure care: FINDINGS Foraminal Nerve Root Compression secondary to disc disease and facet hypertrophy DESCRIPTION OF PROCEDURE Following review of allergy and review of potential side effects and complications, including, but not necessarily limited to, infection, allergic reaction, local tissue breakdown, stroke, temporary or permanent nerve injury, paralysis, and possible , the patient indicated that the patient understood and agreed to proceed. An informed consent document was signed by the patient, witnessed by a nurse, and placed in the patient's chart. Additionally, other treatment options including medications, modalities, and physical therapy were reviewed with the patient. After review of previous anaesthesic history and IV conscious sedation the patient was deemed safe to proceed with today?s procedure with IV conscious sedation as ASA class II designation. Safety time-out was performed to confirm patient ID, procedure to be performed and site of procedure. IV sedation was accomplished with a combination of 2mg of Versed was administered by the RN after DO order, titrated to patient comfort during the course of the procedure while the patient remained responsive to all verbal commands In the prone position following sterile prep and drape of the lumbar region, the right L5/S1 posterior neuroforamen was identified fluoroscopically. The skin was anesthetized via a 25-gauge 1.5-inch needle with 1% lidocaine solution. At this point, a 25-gauge 3.5-inch spinal needle was atraumatically introduced and advanced under fluoroscopic guidance through the posterior right L5/S1 neuroforamen to approximately the anterior aspect of the canal. Depth was confirmed on lateral view. Following negative aspiration, injection of approximately 1.5cc of Isovue 200 under live fluoroscopy in the AP view confirmed excellent flow along the nerve root, into the epidural space without vascular or intrathecal uptake observed Radiological data, including multiple fluoroscopic views of the lumbosacral spine, reveal a spinal needle at the right L5/S1 posterior neuroforamen. Subsequent views show flow of contrast material flowing superiorly and inferiorly along the nerve root confirming epidural flow. Subsequently, a test dose of 1.5cc of 0.25% marcaine solution was administered and patient was observed for two minutes for signs or symptoms of complications, including abdominal pain, shortness of breath, bilateral upper or lower extremity weakness, nausea and vomiting, prior to steroid injection. At this point, a total of 3cc or 10mg of dexamethasone and 12mg of betamethasone was injected without incident. The procedure tolerated the procedure well without signs or symptoms of complications prior to transfer to the recovery area continued monitoring without incident. The patient was then transferred to the recovery area where they were observed for an appropriate time after the injection. The patient reported a VAS score of 7 prior to the procedure and a post- procedure VAS of 1. POST OP INSTRUCTIONS The patient was provided a Pain Log to continue to record their response to the target-specific procedure prior to follow-up visit with their referring physician. Additionally, specific post-injection care instructions and a contact number to our office were provided if concerns arise regarding possible complications associated with the procedure are suspected.
== END 2024-11-13 12:20 | disposition home or self-care (01) ==
LOC: RAD 09:59
PROVIDERS: Referring Provider Physical Medicine & Rehabilitation; Visit Provider Physical Medicine & Rehabilitation
DX: M48.07 Spinal stenosis, lumbosacral region (principal); M51.17 Intervertebral disc disorders with radiculopathy, lumbosacral region; M47.27 Other spondylosis with radiculopathy, lumbosacral region
CPT/HCPCS: 64483; 99152; J0702; J1100; J2250

== ENCOUNTER → 2025-02-03 10:41 | Outpatient (CLI) | payer MEDICARE, OTHER, SELFPAY ==
--- NOTE | 2025-02-03 10:43 | DI.MRI.S_ITS ---
PROCEDURE: MR FOOT RT WO/W CON INDICATIONS: SKIN ULCER OF SECOND TOE TECHNIQUE: Noncontrast coronal T1 spin echo and STIR, sagittal T1 spin echo with fat saturation and STIR, axial T1 spin echo and T2 fast spin echo with fat saturation. After the administration of contrast, axial/sagittal/coronal T1 spin echo with fat saturation through the right foot . COMPARISON: [facility], CR, XR FOOT 3 VIEWS WEIGHT BEARING RIGHT, 07/26/2023, 9:06. FINDINGS: Image quality: Excellent. 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 Postsurgical changes are seen in 2nd toe with susceptibility artifacts which limits the evaluation. No definite marrow edema. No acute fracture or dislocation. No obvious bony erosive changes or cortical destruction. No abnormal periosteal reactions. No area of abnormal intraosseous enhancement. Soft tissues: There is soft tissue edema and swelling surrounding 2nd toe. No discrete drainable peripherally enhancing fluid collection is seen. Extensor and flexor tendons are intact. Visualized plantar foot muscles show normal size and signal. Principal Lisfranc ligament is intact. IMPRESSION: 1. Post fixation changes in 2nd toe with susceptibility artifact slightly limits the evaluation. 2. Suggestion of cellulitis surrounding distal portion of 2nd toe without discrete drainable abscess collection. 3. No definite MR evidence of osteomyelitis in midfoot and forefoot. No area of abnormal contrast enhancement. 4. Extensor and flexor tendons are intact. Lisfranc ligament is intact. Dictated by: Oracio Duke M.D. on 02/04/2025 at 10:38 Approved by: Oracio Duke M.D. on 02/04/2025 at 10:42
== END ==
LOC: MRI 10:41
PROVIDERS: Referring Provider Orthopaedic Surgery Foot and Ankle Surgery; Visit Provider Orthopaedic Surgery Foot and Ankle Surgery
DX: L97.514 Non-pressure chronic ulcer of other part of right foot with necrosis of bone (principal)
CPT/HCPCS: 73720; A9579